=== PATIENT | female | born 1945 | race Caucasian/White ===

== ENCOUNTER → 2016-09-18 | Outpatient (CLI) | payer BC ==
[~2016-09-18] MED LIST: CHOL100010 PO; FLX5 PO; LEVO112T4 PO; LISI-725 PO; LMC/150 PO; PRED-301 PO; RXC5 PO; TRAM-10 PO; ZNTT/150 PO
[2016-09-18 14:11] LABS: CREATININE 0.81 mg/dl (0.60-1.20)
== END | disposition home or self-care (01) ==
LOC: C.LABBC 09:26
PROVIDERS: ATTEND Internal Medicine
DX: S32.030A Wedge compression fracture of third lumbar vertebra, initial encounter for closed fracture (principal); M85.80 Other specified disorders of bone density and structure, unspecified site; X58.XXXA Exposure to other specified factors, initial encounter

== ENCOUNTER → 2016-09-23 | Day surgery (SDC) | payer BC ==
[~2016-09-23] VITALS: Ht 167.6 cm; Wt 60.0 kg
[~2016-09-23] MED LIST changes: +ZOLEDRONIC ACID INJ 5 MG in EMPTY BAG 0 ML IV SCH
[2016-09-23 09:59] VITALS: BP 147/74; PULSE 84; TEMP 36.7; O2SAT 95; Ht 167.6 cm; Wt 60.0 kg
== END | disposition home or self-care (01) ==
LOC: C.MTU 09:51
PROVIDERS: ATTEND Physician Assistant
DX: M81.0 Age-related osteoporosis without current pathological fracture (principal)

== ENCOUNTER → 2016-11-06 | Outpatient (CLI) | payer BC ==
[~2016-11-06] MED LIST changes: -FLX5 PO; -RXC5 PO; -ZOLEDRONIC ACID INJ 5 MG in EMPTY BAG 0 ML IV SCH
[2016-11-06 10:53] LABS: MEAN CELL VOLUME 99.2 fL (80-100); MEAN CORPUSCULAR HEMOGLOBIN 32.9 pg (25-34); MEAN CORPUSCULAR HGB CONC 33.1 g/dl (32-36); MEAN PLATELET VOLUME 9.7 fL (7.4-10.4); PLATELET COUNT 507 K/uL (130-400); RED BLOOD COUNT 3.53 M/uL (4.2-5.4)
[2016-11-06 11:09] LABS: BLOOD UREA NITROGEN 15 mg/dl (7-18); BUN/CREATININE RATIO 21.3 (10-20); CALCIUM 9.4 mg/dl (8.5-10.1); CARBON DIOXIDE 29 mmol/L (21-32); CHLORIDE 104 mmol/L (98-107); CREATININE 0.72 mg/dl (0.60-1.20); GLUCOSE 130 mg/dl (70-99); POTASSIUM 3.5 mmol/L (3.5-5.1); SODIUM 141 mmol/L (136-145)
[2016-11-06 11:33] LABS: ANISOCYTOSIS PRESENT; BASO % 0.4 %; BASO ABS # 0.04 K/uL (0-0.2); COMPLETE YES; IG% 0.3 %; LYMPH % 20.9 %; LYMPH ABS # 2.22 K/uL (1.2-3.4); MONO % 9.4 %; STOMATOCYTE 1+; TARGET CELLS 1+
== END | disposition home or self-care (01) ==
LOC: C.LABBC 08:59
PROVIDERS: ATTEND Internal Medicine
DX: R70.0 Elevated erythrocyte sedimentation rate (principal)

== ENCOUNTER → 2016-12-25 | Outpatient (CLI) | payer BC ==
[2016-12-25 11:29] LABS: ESTIMATED AVERAGE GLUCOSE 108 mg/dl; HA1C FLAG Normal (Normal)
--- NOTE | 2016-12-30 12:45 | CODING QUERY MEDICAL NECESSITY ---
CQSUPPORTING DIAGNOSIS NEEDED A supporting diagnosis is required for the test/procedure performed on this patient in order for us to be reimbursed by the patient's insurance. Please provide a supporting diagnosis for the following test/procedure listed below next to the test name along with your signature. *If there is no additional diagnosis for this patient that would support the following test/procedure please document that below next to the test/procedure. Test(s)/Procedure(s) that require a supporting diagnosis: DOS 12/25/16 GLYCATED HEMOGLOBIN TEST ORDERED BY GABO SULLIVAN Provider Signature: Date: Thank you Waleska Soriano Health Information Management Once completed, please kindly fax back to [phone] For questions please call [phone]
== END ==
LOC: C.LABBC 08:53
PROVIDERS: ATTEND Physician Assistant
DX: R76.8 Other specified abnormal immunological findings in serum (principal); M35.3 Polymyalgia rheumatica; D64.9 Anemia, unspecified; Z13.1 Encounter for screening for diabetes mellitus

== ENCOUNTER → 2017-02-12 | Outpatient (CLI) | payer BC | END | disposition home or self-care (01) | LOC: C.LABBC 08:27 | PROVIDERS: ATTEND Physician Assistant | DX: E89.0 Postprocedural hypothyroidism (principal) ==

== ENCOUNTER → 2017-05-28 | Outpatient (CLI) | payer BC ==
[2017-05-28 13:35] LABS: BASO % 0.1 %; BASO ABS # 0.02 K/uL (0-0.2); EOS % 0.3 %; HEMATOCRIT 35.7 % (37-47); IG% 0.3 %; LYMPH ABS # 1.17 K/uL (1.2-3.4); MEAN CELL VOLUME 103.5 fL (80-100); MEAN CORPUSCULAR HEMOGLOBIN 33.9 pg (25-34); MEAN CORPUSCULAR HGB CONC 32.8 g/dl (32-36); MEAN PLATELET VOLUME 10.4 fL (7.4-10.4); MONO % 6.9 %; NEUT % 84.4 %; PLATELET COUNT 458 K/uL (130-400); RED BLOOD COUNT 3.45 M/uL (4.2-5.4); WHITE BLOOD COUNT 14.62 K/uL (4.8-10.8)
[2017-05-28 13:53] LABS: BLOOD UREA NITROGEN 18 mg/dl (7-18); BUN/CREATININE RATIO 25.3 (10-20); CALCIUM 9.1 mg/dl (8.5-10.1); CARBON DIOXIDE 27 mmol/L (21-32); CHLORIDE 106 mmol/L (98-107); GLUCOSE 123 mg/dl (70-99); POTASSIUM 3.8 mmol/L (3.5-5.1); SODIUM 139 mmol/L (136-145)
[2017-05-28 14:25] LABS: ANISOCYTOSIS PRESENT; COMPLETE YES
== END | disposition home or self-care (01) ==
LOC: C.LABBC 11:00
PROVIDERS: ATTEND Physician Assistant
DX: M35.3 Polymyalgia rheumatica (principal)

== ENCOUNTER → 2017-06-01 | Outpatient (CLI) | payer BC | END | disposition home or self-care (01) | LOC: C.LAB1850 15:11 | PROVIDERS: ATTEND Physician Assistant | DX: R76.8 Other specified abnormal immunological findings in serum (principal); M25.50 Pain in unspecified joint ==

== ENCOUNTER → 2017-06-16 | Outpatient (CLI) | payer BC | END | disposition home or self-care (01) | LOC: C.RDSM 12:07 | PROVIDERS: ATTEND Family Medicine | DX: M25.511 Pain in right shoulder (principal) ==

== ENCOUNTER → 2017-07-01 | Outpatient (CLI) | payer BC ==
--- NOTE | 2017-07-02 07:47 | MAMMOGRAPHY REPORT ---
BILATERAL DIGITAL SCREENING MAMMOGRAM TOMOSYNTHESIS WITH CAD: 07/01/2017 CLINICAL HISTORY: Routine screening. Patient has no complaints. TECHNIQUE: Breast tomosynthesis in addition to standard 2D mammography was performed. Current study was also evaluated with a Computer Aided Detection (CAD) system. COMPARISON: Comparison is made to exams dated: 06/30/2016 mammogram, 06/27/2015 mammogram, 4 mammogram, 06/23/2013 mammogram, 06/22/2012 mammogram, and 06/20/2011 mammogram - [facility]. BREAST COMPOSITION: There are scattered areas of fibroglandular density in both breasts. FINDINGS: There are benign rim calcifications in both breasts. No suspicious mass, architectural di stortion or cluster of microcalcifications is seen. IMPRESSION: ACR BI-RADS CATEGORY 2: BENIGN There is no mammographic evidence of malignancy. A 1 year screening mammogram is recommended. The pa tient will receive written notification of the results. Approximately 10% of breast cancers are not detected with mammography. A negative mammographic report should not delay biopsy if a clinically suggestive mass is present. Angela Titus M.D. ay/:07/01/2017 09:44:58 [employer]work Salv[employer] Inspector: Kim Wooten, [facility] letter sent: Normal 1/2 BI-RADS Code: ACR BI-RADS Category 2: Benign
== END | disposition home or self-care (01) ==
LOC: C.MAMM 08:57
PROVIDERS: ATTEND Obstetrics & Gynecology
DX: Z12.31 Encounter for screening mammogram for malignant neoplasm of breast (principal)

== ENCOUNTER → 2017-07-31 | Outpatient (CLI) | payer BC ==
[2017-07-31 13:38] LABS: BASO % 0.5 %; BASO ABS # 0.05 K/uL (0-0.2); HEMATOCRIT 33.7 % (37-47); IG% 0.3 %; LYMPH % 19.8 %; LYMPH ABS # 2.05 K/uL (1.2-3.4); MEAN CELL VOLUME 103.4 fL (80-100); MEAN CORPUSCULAR HEMOGLOBIN 33.1 pg (25-34); MEAN PLATELET VOLUME 9.8 fL (7.4-10.4); MONO % 8.5 %; NEUT % 68.9 %; PLATELET COUNT 429 K/uL (130-400); RED BLOOD COUNT 3.26 M/uL (4.2-5.4); WHITE BLOOD COUNT 10.36 K/uL (4.8-10.8)
[2017-07-31 13:54] LABS: BLOOD UREA NITROGEN 20 mg/dl (7-18); BUN/CREATININE RATIO 25.6 (10-20); CALCIUM 9.1 mg/dl (8.5-10.1); CARBON DIOXIDE 27 mmol/L (21-32); CHLORIDE 103 mmol/L (98-107); CREATININE 0.77 mg/dl (0.60-1.20); GLUCOSE 117 mg/dl (70-99); POTASSIUM 3.7 mmol/L (3.5-5.1); SODIUM 140 mmol/L (136-145)
[2017-07-31 14:10] LABS: ANISOCYTOSIS PRESENT; COMPLETE YES; HYPOCHROMIA PRESENT
== END | disposition home or self-care (01) ==
LOC: C.LABBC 09:25
PROVIDERS: ATTEND Physician Assistant
DX: E89.0 Postprocedural hypothyroidism (principal); D64.9 Anemia, unspecified; I10 Essential (primary) hypertension

== ENCOUNTER → 2017-08-17 | Outpatient (CLI) | payer BC ==
--- NOTE | 2017-08-17 10:12 | DIAGNOSTIC IMAGING REPORT ---
R WRIST MIN 3 VIEWS ROUTINE CLINICAL HISTORY: Steroid induced osteoporosis. COMPARISON: None FINDINGS: Alignment of the right wrist is anatomic. There is no fracture or suspicious osseous lesion. There is mild to moderate medial right wrist soft tissue swelling overlying the distal right ulna. There is mild osteoarthritis of multiple articulations within the right wrist, including the triscaphe joint and right first carpometacarpal joint and the radiocarpal articulation. No erosions are identified. IMPRESSION: 1. 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 No erosions identified. 2. Mild to moderate medial right wrist soft tissue swelling. Electronically signed by: Harshil Rascon M.D. 08/17/2017 10:11 AM Dictated Date/Time: 08/17/2017 10:10 AM
--- NOTE | 2017-08-17 10:12 | DIAGNOSTIC IMAGING REPORT ---
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 DISCUSSION: Mild generalized osteopenia. There are no significant marginal erosions. Mild degenerative changes of the articular services primarily at the first carpometacarpal joint. No acute bony and amount. No abnormal soft tissue calcifications. There is no evidence for soft tissue swelling. IMPRESSION: 1. Mild generalized osteopenia. 2. Mild generalized degenerative change most prominent at the first carpometacarpal joint. 3. No acute process. The above report was generated using voice recognition software. It may contain grammatical, syntax or spelling errors. Electronically signed by: Pete Nevarez M.D. 08/17/2017 10:11 AM Dictated Date/Time: 08/17/2017 10:09 AM
--- NOTE | 2017-08-17 10:15 | DIAGNOSTIC IMAGING REPORT ---
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 Mild radiocarpal, multidigit metacarpophalangeal and interphalangeal degenerative changes are noted with moderate triscaphe and first digit carpometacarpal osteoarthritis. There is no acute fracture, dislocation or significant degenerative changes. Soft tissues are unremarkable. IMPRESSION: 1. No acute fracture or dislocation. 2. Mildly demineralized appearance of the bones, notably within the periarticular distributions about the hand. 3. Multifocal degenerative changes of the hand, primarily mild. The above report was generated using voice recognition software. It may contain grammatical, syntax or spelling errors. Electronically signed by: Brian Crandall M.D. 08/17/2017 10:13 AM Dictated Date/Time: 08/17/2017 10:09 AM
[2017-08-17 11:09] LABS: RHEUMATOID FACTOR < 10.0 U/mL (0-15)
== END | disposition home or self-care (01) ==
LOC: C.RAD1850 09:36
PROVIDERS: ATTEND Internal Medicine Rheumatology
DX: M81.8 Other osteoporosis without current pathological fracture (principal)

== ENCOUNTER → 2017-08-21 | Outpatient (CLI) | payer BC | END | disposition home or self-care (01) | LOC: C.LABBC 11:48 | PROVIDERS: ATTEND Internal Medicine Rheumatology | DX: M35.3 Polymyalgia rheumatica (principal) ==

== ENCOUNTER 2017-09-06 08:44 | Emergency (ER) | payer BC ==
[~2017-09-06] VITALS: Ht 167.6 cm; Wt 60.4 kg
[2017-09-06 08:48] VITALS: Ht 167.6 cm; Wt 60.4 kg
[2017-09-06] MEDS ORDERED: CIPR-255 PO (09:13)
[2017-09-06 09:23] VITALS: BP 155/81; PULSE 86; TEMP 36.5; O2SAT 98
--- NOTE | 2017-09-06 10:37 | EMERGENCY ROOM VISIT NOTE ---
ED Visit Note First contact with patient: 08:54 Patient was seen by our PA/DIRECTOR OF CONTRACTS. I was involved in the patient's care and did evaluate the patient myself. I was involved in the care throughout the ER stay. The patient has urinary symptoms. She is not toxic or febrile. She is not vomiting. She would like to try antibiotics for now. She will return if not improving or worsening. She has had numerous UTI's in the past.
--- NOTE | 2017-09-08 12:28 | Pharmacy Progress Note ---
ED Pharmacist Progress Note Date of Service: Sep 08, 2017. Called patient regarding URINE culture. Prescription for Macrobid 100mg PO BID x 7 days called to [facility] ([phone]) at the patient's request. Case discussed with Dr Elmo Cosme, who is the prescribing provider. Patient was instructed to stop taking the Ciprofloxacin as the e coli growing in the urine cx was resistant.
--- NOTE | 2017-09-23 16:54 | EMERGENCY ROOM VISIT NOTE ---
History First contact with patient: 08:54 Chief Complaint: URINARY SYMPTOMS Stated Complaint: UTI SYMPTOMS Nursing Triage Summary: thursday night urine infections started . started urostat. sx have become worse. denies any vomiting feels nauseated. lower middle abd pain. has hx of uti. gets spasms. requesting antibiotics History of Present Illness The patient is a 72 year old female who presents to the Emergency Room with complaints of urinary discomfort and increased frequency. The patient reports that her symptoms started 3 days ago. The patient has had a prior history of urinary tract infections. The patient complains of suprapubic pressure. She denies any pain radiating into the back or flanks. She does report mildly nauseated, and denies any fever or chills. She rates her discomfort a 3 out of 10 on my exam. Review of Systems 10 system review was performed and was negative except for pertinent positives and negatives as indicated in history of present illness Past Medical/Surgical History Medical Problems: (1) Compression fracture of L3 lumbar vertebra (2) Compression fracture of second lumbar vertebra (3) Sacral fracture, closed Family History Patient reports no known family medical history. Social History Smoking Status: Never Smoker Alcohol Use: occasionally Drug Use: none Marital Status: Housing Status: lives with family Current/Historical Medications Scheduled Cholecalciferol (Vitamin D), 2,000 INTER.UNIT PO DAILY Ciprofloxacin Hcl (Cipro), 500 MG PO BID Lamotrigine (Lamictal), 150 MG PO BID Levothyroxine Sodium (Levothyroxine Sodium), 112 MCG PO DAILY Lisinopril (Zestril), 10 MG PO DAILY Prednisone (Prednisone), 15 MG PO DAILY Ranitidine (Zantac), 150 MG PO BID Physical Exam Vital Signs Date Time Temp Pulse Resp B/P (MAP) Pulse Ox O2 Delivery O2 Flow Rate FiO2 09/06/17 09:23 36.5 86 18 155/81 98 09/06/17 09:23 86 18 155/81 98 Room Air 09/06/17 08:48 36.5 86 18 174/83 98 Room Air Physical Exam CONSTITUTIONAL: Healthy and well nourished. Alert and oriented X 3 with positive affect. HEENT: Normocephalic, atraumatic. Pupils equal, round and reactive. NECK: Full active range of motion without discomfort. GASTROINTESTINAL: Patient has mild suprapubic tenderness to palpation. Negative McBurney's point tenderness. No focal left lower quadrant tenderness to palpation. No abdominal rigidity, guarding or rebound. Negative CVA tenderness. MUSCULOSKELETAL: Full range of motion of all joints without discomfort. INTEGUMENTARY: No rash or other significant dermatologic conditions noted. NEUROLOGIC: No focal neurologic deficits noted. Medical Decision & Procedures Laboratory Results Test 09/06/17 08:45 Lab Scanned Report Laboratory Report/Additional Date/Time Source Procedure Growth Status 09/06/17 09:00 Urine , Clean Catch Urine Culture - Final Escherichia Coli Complete Urine dip shows hematuria, nitrites and leukocyte esterase. Urine cultures were ordered and are pending. ED Course Patient history and physical exam were performed. Nurse's notes were reviewed. Vital signs were reviewed and were normal. The patient is afebrile. Urine dip is how is suggestive of infection. Urine cultures were ordered and are pending. I did review urine cultures from June 2013, showing Escherichia coli that was pansensitive. The patient will therefore be treated with ciprofloxacin antibiotics. She was encouraged to follow-up with her PCP if symptoms are not improving. Return to the emergency department for any significantly worsening pain, vomiting or fever. The patient was also seen and examined by Dr. Youngblood, ED attending physician, who agrees with workup and plan of care. Medical Decision Patient has urine dip findings consistent with UTI. Clinical exam is not suggestive of appendicitis, diverticulitis, pyelonephritis, peritonitis or other acute intra-abdominal etiologies. The patient is afebrile and does not appear in any acute distress. [facility] Drug Monitoring Program Search Results: patient reviewed within database Medication Reconcilliation Current Medication List: was personally reviewed by la Blood Pressure Screening Patient's blood pressure: Normal blood pressure Impression Primary Impression: Urinary tract infection Departure Information Dispostion Home / Self-Care Condition GOOD Prescriptions Ciprofloxacin Hcl (CIPRO) 500 Mg Tab 500 MG PO BID for 7 Days, #14 TAB Prov: Tam Brooks PA 09/06/17 Forms HOME CARE DOCUMENTATION FORM, IMPORTANT VISIT INFORMATION Patient Instructions My [facility] [place] [employer] Additional Instructions Complete all Cipro antibiotics as prescribed. You may continue with Uristat as needed for urinary discomfort. Return to the emergency department for any progressively worsening pain, fever or vomiting. Problem Qualifiers Primary Impression: Urinary tract infection Urinary tract infection type: acute cystitis Hematuria presence: with hematuria Qualified Codes: N30.01 - Acute cystitis with hematuria
== END 2017-09-06 09:24 | disposition home or self-care (01) ==
LOC: C.EDB 08:45
DX: N39.0 Urinary tract infection, site not specified (principal); Z79.899 Other long term (current) drug therapy

== ENCOUNTER → 2017-09-22 | Outpatient (CLI) | payer BC ==
[~2017-09-22] MED LIST changes: +CIPR-255 PO; -TRAM-10 PO
== END | disposition home or self-care (01) ==
LOC: C.LABBC 09:39
PROVIDERS: ATTEND Internal Medicine Rheumatology
DX: M81.8 Other osteoporosis without current pathological fracture (principal); Z79.52 Long term (current) use of systemic steroids; Z51.81 Encounter for therapeutic drug level monitoring; R39.9 Unspecified symptoms and signs involving the genitourinary system

== ENCOUNTER → 2017-09-29 | Outpatient (CLI) | payer BC | END | disposition home or self-care (01) | LOC: C.MAMM 07:46 | PROVIDERS: ATTEND Internal Medicine Rheumatology | DX: M85.851 Other specified disorders of bone density and structure, right thigh (principal); M85.852 Other specified disorders of bone density and structure, left thigh ==

== ENCOUNTER → 2017-11-23 | Outpatient (CLI) | payer BC ==
[~2017-11-23] MED LIST changes: +RANI150T85 PO; -ZNTT/150 PO
== END | disposition home or self-care (01) ==
LOC: C.LABBC 10:27
PROVIDERS: ATTEND Internal Medicine Rheumatology
DX: M35.3 Polymyalgia rheumatica (principal)

== ENCOUNTER → 2017-12-31 | Outpatient (CLI) | payer BC ==
[2017-12-31 14:10] LABS: BLOOD UREA NITROGEN 18 mg/dl (7-18); CREATININE 0.71 mg/dl (0.60-1.20); GLUCOSE 132 mg/dl (70-99)
[2017-12-31 14:11] LABS: CALCIUM 8.8 mg/dl (8.5-10.1); CARBON DIOXIDE 27 mmol/L (21-32); POTASSIUM 3.5 mmol/L (3.5-5.1); SODIUM 140 mmol/L (136-145)
[2017-12-31 14:21] LABS: CHOLESTEROL 185 mg/dl (0-200); LDL CHOLESTEROL CALCULATED 110 mg/dl
[2017-12-31 14:29] LABS: BASO % 0.3 %; BASO ABS # 0.04 K/uL (0-0.2); EOS % 2.1 %; EOS ABS # 0.26 K/uL (0-0.5); HEMATOCRIT 37.5 % (37-47); HEMOGLOBIN 12.5 g/dL (12.0-16.0); IG# 0.05 K/uL (0.00-0.02); LYMPH ABS # 2.44 K/uL (1.2-3.4); MEAN CORPUSCULAR HEMOGLOBIN 36.3 pg (25-34); MEAN CORPUSCULAR HGB CONC 33.3 g/dl (32-36); MEAN PLATELET VOLUME 10.1 fL (7.4-10.4); MONO % 7.3 %; MONO ABS # 0.89 K/uL (0.11-0.59); NEUT % 69.9 %; NEUT ABS # 8.54 K/uL (1.4-6.5); NUCLEATED RED BLOOD CELL ABS 0.03 K/uL (0-0); PLATELET COUNT 454 K/uL (130-400); RED CELL DISTRIBUTION WIDTH SD 83.2 fL (36.4-46.3); WHITE BLOOD COUNT 12.22 K/uL (4.8-10.8)
== END | disposition home or self-care (01) ==
LOC: C.LABBC 09:42
PROVIDERS: ATTEND Physician Assistant
DX: M35.3 Polymyalgia rheumatica (principal); Z79.52 Long term (current) use of systemic steroids; I10 Essential (primary) hypertension; E89.0 Postprocedural hypothyroidism

== ENCOUNTER → 2018-04-15 | Outpatient (CLI) | payer BC | END | disposition home or self-care (01) | LOC: C.LABBC 08:14 | PROVIDERS: ATTEND Internal Medicine Rheumatology | DX: K21.9 Gastro-esophageal reflux disease without esophagitis (principal); M35.3 Polymyalgia rheumatica; R70.0 Elevated erythrocyte sedimentation rate ==

== ENCOUNTER 2025-03-03 20:12 | Inpatient (IN) ==
[2025-03-03] MEDS: SODIUM CHLORIDE 0.9% 1,000 ML IV SCH (20:27)
--- NOTE | 2025-03-03 20:33 | Emergency Department Note ---
Impression & Plan Weakness, Anemia, Acute hyperglycemia, Leukocytosis, Failure of outpatient treatment ED Provider Note NAME: SMILEY PERRY AGE: 79 SEX: F : 1945 ARRIVES VIA: Ambulance INFORMANT: [Patient][ems] ED PROVIDER(S): [Omar Youngblood MD] CHIEF COMPLAINT: Bilateral leg weakness HISTORY OF PRESENT ILLNESS: The patient is a 79-year-old female who presents to the ER with leg weakness. The patient has been having symptoms for at least 2 weeks, she has been here twice already for the same complaint. She is now on a burst of steroids. The patient states that she has been crumpling to the ground and sitting on the ground/floor because of the leg weakness, no fall. No injury. No fever. No cough or congestion. No abdominal pain, no vomiting. She does notice some urinary frequency but there is no burning. Both legs are affected, it is not a one-sided weakness. Of note, the patient did have an MRI of her lumbar spine performed 11 days ago with the first ED visit, there was nothing to suggest acute surgical pathology. As per EMS, blood sugar was over 400 prior to arrival. The patient is diabetic but does not monitor her sugars. No recent vaccinations administered. PMHx/PSHx/Social Hx: See Below PHYSICAL EXAM: GENERAL: Patient is in no acute distress. HEENT: No acute trauma, normocephalic atraumatic, mucous membranes moist, no nasal congestion. NECK: No stridor, no adenopathy, no meningismus, trachea is midline. LUNGS: Clear to auscultation bilaterally, no wheeze, no rhonchi, breath sounds equal. HEART: 2/6 systolic murmur, tachycardic, normal rhythm ABDOMEN: Soft, nontender, no peritonitis. EXTREMITIES: No cyanosis, full range of motion of all the joints without pain or difficulty. NEUROLOGIC: Oriented x 3, no acute motor deficits. No speech slur or facial droop. She does have decent strength in the lower extremities bilaterally. Plantarflexion and dorsiflexion of both feet seems intact. I cannot elicit reflexes in either the right or left patella/Achilles. SKIN: No jaundice, no diaphoresis. DIFFERENTIAL DIAGNOSIS: Dehydration, electrolyte imbalance, medication reaction, neuropathy, Lucia Corryton syndrome, among others. EMERGENCY DEPARTMENT PROCEDURES: MEDICAL DECISION MAKING: There is a mild leukocytosis. This could be consistent with infection or potentially, her recent steroid use. There is anemia present with a hemoglobin of 10.5, the hemoglobin is at baseline based on previous testing. Platelet count slightly elevated at 408. No renal failure. Glucose was quite high at 470. Lactic acid level was not elevated making sepsis less likely. Bilirubin was very mildly elevated. Total CK was not elevated making rhabdomyolysis unlikely. The patient appeared to be in a euthyroid state. ECG showed a sinus tachycardia, no acute ischemia. Cardiac enzyme testing x 1 was not consistent with acute cardiac injury. Urinalysis showed findings of dehydration, glucose was seen. No infection. Chest x-ray did not show pneumonia or CHF. Blood cultures are pending. On exam, the patient had decent strength in the lower extremities, I could not elicit any reflexes. Patient received IV saline, 2 L. She was given IV Tylenol and IV cefepime. The cefepime was for empiric antibiotic coverage. The patient was borderline febrile. She has a leukocytosis, her weakness has increased, she is now quite hyperglycemic, she has failed outpatient management. I do think a hospital stay, hydration, further workup is warranted. At this point, the cause for the progressive weakness is unclear. Further workup is clearly indicated. I do not think a repeat MRI is necessary as she just underwent this test for the same complaints 11 days ago. Patient may benefit from a neurology consult. She may need PT/OT once her electrolytes have been corrected. I did speak with the patient and case management, the on-call hospitalist was consulted. Prior/Outside records/notes reviewed: Today's EMS notes describing her presentation and transport to this hospital. ECG per my interpretation: Indication was weakness. The ECG shows a sinus tachycardia with a rate of 107. There is no acute ST elevation, no PVCs. The QTc is 424. Continuous Cardiac Monitoring per my interpretation: An order was placed for continuous cardiac monitoring. The monitor shows a rate of 108 with sinus tachycardia. Imaging/x-ray results per my interpretation: Chest x-ray does not show CHF or pneumonia. Chronic Medical/Social conditions affecting care: Advanced age. 2 previous ED visits for the last 10 days. Care/Management discussed with: Case management, the on-call hospitalist. Level of care consideration(s): After review of the information above and other included data: --I believe the patient requires escalation of care to admission DISPOSITION: Admission Past Med/Surg History Problem List (Updated 03/03/25 @ 22:28 by Omar Youngblood MD) Failure of outpatient treatment (Acute) Leukocytosis (Acute) Acute hyperglycemia (Acute) Anemia (Acute) Weakness (Acute) Spinal stenosis (Acute) Compression deformity of vertebra (Acute) Back pain (Acute) Peripheral neuropathy (Acute) Bilateral leg weakness (Acute) Pulsatile tinnitus Bilateral tinnitus Sensorineural hearing loss (SNHL) of both ears >AD Osteoporosis Compression fracture of spine (~08/05/24) Per the CT dated 08/05/24-compression fractures of L2, L3 and L5. These are new since CT of January 14, 2012. Coronary artery calcification seen on CAT scan Cardiomegaly Type 2 diabetes mellitus Squamous cell carcinoma of skin of chest Decreased hearing Skin lesion of chest wall Pain in both feet Heart rate fast Hyperglycemia Health care maintenance Hypothyroidism (Chronic) VICENTE positive (Chronic) Arthralgia of multiple joints (Chronic) Bakers cyst (Chronic) Carpal tunnel syndrome (Chronic) gets numb occasionally Hypertension (Chronic) Laryngopharyngeal reflux (Chronic) snf (current) use of systemic steroids (Chronic) Lumbosacral radiculopathy (Chronic) Myelodysplastic syndrome (Chronic) f/u dr. bradford, twice per year Peripheral neuropathy (Chronic) Postmenopausal atrophic vaginitis (Chronic) Seizure disorder (Chronic) most recent seizure in 1991-grand mal, "no issues since then" Steroid-induced osteoporosis (Chronic) Vitamin D deficiency (Chronic) Medical History Cerumen debris on tympanic membrane of right ear Bone spur of right foot Asymptomatic age-related postmenopausal state Hx of radioactive iodine thyroid ablation 2011 History of anemia Hypothyroidism Dysphagia occasionally, makes sure to drink fluids w/meals Dysuria takes AZO daily per 's suggestion Back pain with sciatica Compression fracture of L2 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 Esophageal spasm PMR (polymyalgia rheumatica) Undifferentiated connective tissue disease Venous stasis of both lower extremities Urinary tract infection hx-"gets frequently, dr recommended she take Azo daily" Compression fracture of second lumbar vertebra Surgical History History of esophagogastroduodenoscopy (EGD) Hx of colonoscopy H/O tubal ligation History of colposcopy Family History Mother Diabetes Denies family history of Ovarian cancer Prostate cancer Myocardial infarction Breast cancer Colorectal cancer Social History Smoking Status: Former smoker Tobacco Type: Cigarettes Age Started Using Tobacco: 20; Age Quit Using Tobacco: 64; packs per day: 0.10; Cigarettes Per Day: 1 pack in two weeks; Second Hand Exposure: No; Do You Dip or Chew Tobacco: No; Hx Alcohol Use: No (none since 2015) Hx Substance Use: No Preferred Language: Estonian Communication Ability: Effective Visual Impairment: No Limitations Hearing Ability: Use of Hearing Aid Public Safety Officer Required: No Beliefs That Will Affect Care: None marital status: Current Living Situation: Spouse current occupational status: retired Feels Safe at Home: Yes Childhood Exposure to Second-Hand Smoke: No Dental Care, Regularly: Yes Physical Activity Frequency: Daily Seatbelt Use: always Sunscreen Use: Yes Assistive Devices: Glasses and Other Allergies Allergies Allergy/AdvReac Type Severity Reaction Status Date / Time nitrofurantoin Allergy dizzy, gi Verified 02/15/25 09:01 [From Macrobid] upset ampicillin AdvReac Intermediate Diarrhea Verified 02/15/25 09:01 Sulfa (Sulfonamide AdvReac Mild DIZZY Verified 02/15/25 09:01 Antibiotics) Home Meds Home Medications Medication Instructions Recorded Confirmed cholecalciferol (vitamin D3) 50 2,000 units PO QAM 03/13/20 02/20/25 mcg (2,000 unit) tablet phenazopyridine 95 mg tablet (Azo 95 mg PO BID PRN pain relief 08/26/24 02/20/25 Urinary Pain Relief) rosuvastatin 10 mg tablet 5 mg PO DAILY 08/26/24 02/20/25 vitamins A,C,T-ycap-ucpnpd 4,296 1 cap PO BID 08/26/24 02/20/25 mcg-226 mg-90 mg capsule (PreserVision AREDS) Previous Rx's Medication Instructions Recorded lamotrigine 150 mg tablet 150 mg PO BID #180 tabs 06/14/24 romosozumab-aqqg 210 mg/2.34 210 mg (2.34 mL) subcut ONCE #2.34 10/21/24 mL(105 mg/1.17 mL x2)subcutaneous mL syringe (Evenity) lisinopril 10 mg tablet 10 mg PO QAM #90 tabs 12/02/24 levothyroxine 112 mcg tablet 112 mcg PO UD #90 tabs 01/24/25 prednisone 5 mg tablet 5 mg PO QAM #90 tabs 01/24/25 gabapentin 100 mg capsule 100 mg PO TID PRN back pain #30 02/20/25 caps Results & Data (ED) Vital Signs Vital Signs - 24 hr 03/03/25 20:17 03/03/25 20:22 03/03/25 20:44 Temperature 37.6 C H Temperature Source Oral Pulse Rate 116 H 108 H 106 H Pulse Rate [Finger] Respiratory Rate 26 H 20 Respiratory Effort / Characteristics Non-Labored Spontaneous Respiratory Depth Normal Blood Pressure 161/76 H Blood Pressure [Right Arm] Blood Pressure Mean 104 Blood Pressure Mean [Right Arm] Pulse Oximetry 96 95 Oxygen Delivery Method Room Air Room Air Sepsis Recent Fever Within 48 Hours No Sepsis New/Unexplained Change in Mental Status No Sepsis Action Taken by Nursing Physician Notified 03/03/25 20:44 03/03/25 22:07 Temperature Temperature Source Pulse Rate Pulse Rate [Finger] 107 H 100 H Respiratory Rate 20 20 Respiratory Effort / Characteristics Non-Labored Spontaneous Non-Labored Spontaneous Respiratory Depth Normal Normal Blood Pressure Blood Pressure [Right Arm] 161/76 H 161/76 H Blood Pressure Mean Blood Pressure Mean [Right Arm] 104 104 Pulse Oximetry 95 Oxygen Delivery Method Room Air Room Air Sepsis Recent Fever Within 48 Hours Sepsis New/Unexplained Change in Mental Status Sepsis Action Taken by Residential Medications Current Medication List: was personally reviewed by me Laboratory Data Attestation: I reviewed the patient's lab results. 03/03/25 20:20 03/03/25 20:20 Lab Results 03/03/25 03/03/25 03/03/25 Range/Units 20:20 20:25 Unknown WBC 14.14 H (4.8-10.8) K/ul RBC 3.13 L (4.20-5.40) M/uL Hgb 10.5 L (12.0-16.0) g/dl Hct 31.5 L (37.0-47.0) % MCV 100.6 H (80.0-100.0) fL MCH 33.5 (25.0-34.0) pg MCHC 33.3 (32.0-36.0) g/dL RDW Std Deviation 77.8 H (36.4-46.3) fL RDW Coeff of Hieu 21.4 H (11.5-14.5) % Plt Count 408 H (130-400) K/uL MPV 10.1 (9.4-12.4) fL Immature Gran % (Auto) 1.1 % Neut % (Auto) 90.2 % Lymph % (Auto) 3.0 % [place] % (Auto) 5.1 % Eos % (Auto) 0.5 % Baso % (Auto) 0.1 % Neut # (Auto) 12.74 H (1.40-6.50) K/uL Lymph # (Auto) 0.43 L (1.20-3.40) K/uL [place] # (Auto) 0.72 H (0.11-0.59) K/uL Eos # (Auto) 0.07 (0.00-0.50) K/uL Baso # (Auto) 0.02 (0.00-0.20) K/uL Immature Gran # (Auto) 0.16 (0.01-0.20) K/uL Polychromasia 1+ Anisocytosis Present Sodium 132 L (136-145) mmol/L Potassium 4.1 (3.5-5.1) mmol/L Chloride 99 (98-107) mmol/L Carbon Dioxide 26 (21-32) mmol/L Anion Gap 7 (3-11) BUN 25 H (6-23) mg/dl Creatinine 0.78 (0.6-1.2) mg/dl Est Cr Clr Drug Dosing 54.3 ml/min eGFR 78.18 BUN/Creatinine Ratio 32.1 H (10-20) Glucose 471 H* (70-99(Fasting)) mg/dl POC Glucose 450 H* (70-99) mg/dl Lactate 1.0 (0.4-2.0) mmol/L Calcium 9.0 (8.6-10.3) mg/dl Magnesium 2.0 (1.7-2.4) mg/dl Total Bilirubin 1.4 H (0.2-1.0) mg/dl AST 12 L (13-39) U/L ALT 11 (7-52) U/L Alkaline Phosphatase 57 (34-104) U/L Total Creatine Kinase 35 (26-192) U/L Troponin I High Sens 11.5 (0-14) pg/ml Total Protein 6.6 (6.0-8.3) gm/dl Albumin 3.4 (3.4-5.0) gm/dl Globulin 3.2 (2.5-4.0) gm/dl Albumin/Globulin Ratio 1.1 (0.9-2) TSH 1.946 (0.300-4.500) uIu/ml Urine Color Yellow Urine Appearance Clear (Clear) Urine pH 7.0 (4.5-7.5) Ur Specific [place] 1.034 H (1.000-1.030) Urine Protein Negative (Negative) Urine Glucose (UA) 3+ H (Negative) Urine Ketones 1+ H (Negative) Urine Blood Negative (Negative) Urine Nitrite Negative (Negative) Urine Bilirubin Negative (Negative) Urine Urobilinogen Negative (Negative) Ur Leukocyte Esterase Negative (Negative) Urine Comment Administered Medications Sodium Chloride (Nss) 1,000 mls @ 999 mls/hr IV .Q1H1M ONE Stop: 03/03/25 22:43 Last Admin: 03/03/25 22:06 Dose: 999 mls/hr Documented By: CELI Discontinued Medications Sodium Chloride (Nss) 1,000 mls @ 999 mls/hr IV .Q1H1M LORENE Stop: 03/03/25 21:30 Last Infusion: 03/03/25 21:43 Dose: Infused Documented By: Admin: 03/03/25 20:27 Dose: 999 mls/hr Documented By: SAADIA Acetaminophen (Ofirmev) 1,000 mg in 100 mls @ 400 mls/hr IV NOW STA Stop: 03/03/25 22:22 Last Admin: 03/03/25 22:22 Dose: 400 mls/hr Documented By: MAKAYLA Cefepime HCl (Maxipime 2000mg) 2,000 mg in 20 mls @ 5 mls/min IV NOW STA; Protocol Stop: 03/03/25 22:11 Last Admin: 03/03/25 22:21 Dose: 5 mls/min Documented By: MAKAYLA Imaging Data Radiologist's Impression: Chest X-Ray 03/03/25 20:23 Exam(s): XR CXR 1 VIEW EXAM: XR Chest, 1 View CLINICAL HISTORY: Reason for exam: weakness. TECHNIQUE: Frontal view of the chest. COMPARISON: October 22, 2023 FINDINGS: Lungs: No consolidation. No overt edema. Pleural space: No pleural effusion. No pneumothorax. Heart: Unremarkable. No cardiomegaly. IMPRESSION: No acute cardiopulmonary abnormality. Electronically signed by: Luis Menon MD 03/03/25 22:07 PM [facility], [place] [phone] Magnetic Resonance Report Patient: SMILYE PERRY Admit Date: 02/20/25 MR#: [id number] Address1: [address] [place] [address] Acct ID:[id number] Address2: Date: 1945 [facility] Zip: [place] [address] Age: 79 Location: ED Sex: F Room/Bed: Att Phy: Diagnosis: LEG WEAKNESS & BACK PAIN Karissa Phy: RV. Villalta MD Service Date: 02/20/25 Fam Phy: Interpreting Phy: Darryl CrandallAdmit Phy: Ordering Phy: Tricia Perkins DO cc: ~ MR lumbar spine wo con CLINICAL HISTORY: 79 years-old Female with low back pain, leg weakness, unable to walk. Acute on chronic low back pain COMPARISON: CT abdomen and pelvis 08/05/2024 TECHNIQUE: Multiplanar, multi sequence MRI of the lumbar spine was performed without intravenous contrast. FINDINGS: Chronic 40% L2 compression deformity appears unchanged along with 4 mm retropulsion. Additional chronic L3 and L5 compression deformities appear unchanged. 4 mm retropulsion at L5 again noted. Chronic sacral insufficiency fractures. 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 No acute fracture or subluxation. Heterogeneous appearance of the bone marrow may be related to the patient's history of myelodysplastic syndrome. The conus terminates at L1-L2. Note is made of a lipoma of the filum terminale. The visualized spinal cord and cauda equina are normal. There is no paraspinal edema, mass, or prevertebral fluid collection. The intra-abdominal structures are grossly unremarkable. T12-L1: Small posterior annular disc bulge. Spondylitic spurring with mild to moderate facet arthrosis. No central canal or neural foraminal stenosis. L1-L2: Spondylotic spurring with chronic L2 retropulsion. Circumferential annular disc bulge which is eccentric to the left neural foramen. Trace facet effusions with ligamentum thickening and severe facet arthrosis. Mild central canal and bilateral lateral recess narrowing. Severe left with mild right foraminal narrowing. L2-L3: 3 mm anterolisthesis appear degenerative. Spondylitic spurring circumferential annular disc bulge. Ligamentum flavum thickening with severe facet arthrosis and trace facet effusions. Mild central canal stenosis with AP dimension of the thecal sac measuring 9 mm. 7 mm synovial cyst arising from the left facet joint noted on image 10 series 6. Mild right with moderate left foraminal narrowing. L3-L4: Spondylotic spurring with small circumferential annular disc bulge. Ligamentum thickening with severe facet arthrosis and bilateral facet effusions. Patent central canal with mild bilateral foraminal narrowing. L4-L5: Spondylotic spurring with circumferential annular disc bulge which is eccentric to the right neural foramen. Ligamentum thickening with moderate facet arthrosis. Patent central canal. Moderate narrowing of the lateral recesses, right greater than left. Mild left with moderate to severe right foraminal narrowing. L5-S1: Spondylotic spurring with small posterior annular disc bulge which is eccentric to the left neural foramen. [id number] facet arthrosis. No central canal or foraminal narrowing. IMPRESSION: 1. No acute fracture. 2. Chronic L2, L3 and L5 compression deformities with mild retropulsion. 3. Multilevel central canal and neural foraminal stenosis as above. ACT 112: Negative or not required by law. Discharge Plan Visit Data Chief Complaint: Leg Weakness, Bilateral Stated Complaint: Leg Weakness ED Provider: Omar Youngblood Discharge Problem: Weakness, Anemia, Acute hyperglycemia, Leukocytosis, Failure of outpatient treatment Patient Disposition: Admitted As Inpatient Condition: Fair Forms Stand Alone Forms: My [facility] Prescriptions Prescriptions: No Action lamotrigine 150 mg tablet 150 mg PO BID Qty: 180 3RF Evenity 210mg/2.34mL ( 105mg/1.17mLx2) syringe 210 mg subcut ONCE Qty: 2.34 10RF Rx Instructions: inject monthly for 12 monthly doses lisinopril 10 mg tablet 10 mg PO QAM Qty: 90 1RF prednisone 5 mg tablet 5 mg PO QAM Qty: 90 3RF levothyroxine 112 mcg tablet 112 mcg PO UD Qty: 90 1RF Rx Instructions: 6 days a week only-thursday through thursday only QAM cholecalciferol (vitamin D3) 50 mcg (2,000 unit) tablet 2,000 units PO QAM rosuvastatin 10 mg tablet 5 mg PO DAILY PreserVision AREDS 4,296 mcg-226 mg-90 mg capsule 1 cap PO BID phenazopyridine [Azo Urinary Pain Relief] 95 mg tablet 95 mg PO BID PRN (Reason: pain relief) gabapentin 100 mg capsule 100 mg PO TID PRN (Reason: back pain) Qty: 30 0RF Referrals Referrals: Jonny Lozano MD [Primary Care Provider] - Discharge Problem: Anemia Qualifiers: Anemia type: unspecified type Qualified Code(s): D64.9 - Anemia, unspecified Leukocytosis Qualifiers: Leukocytosis type: unspecified Qualified Code(s): D72.829 - Elevated white blood cell count, unspecified
[2025-03-03 20:44] LABS: Hematocrit (blood only) 31.5 % (37.0-47.0); Hemoglobin 10.5 g/dl (12.0-16.0); Mean Corpuscular Hemoglobin 33.5 pg (25.0-34.0); Mean Corpuscular Volume 100.6 fL (80.0-100.0); Platelet Count 408 K/uL (130-400); RDW Standard Deviation 77.8 fL (36.4-46.3); Red Blood Count 3.13 M/uL (4.20-5.40); White Blood Count 14.14 K/ul (4.8-10.8)
[2025-03-03 21:10] LABS: Alanine Aminotransferase 11.0 U/L (7-52); Albumin Globulin Ratio 1.1 (0.9-2); Alkaline Phosphatase 57.0 U/L (34-104); Anion Gap 7.0 (3-11); Bilirubin,Total 1.4 mg/dl (0.2-1.0); Blood Urea Nitrogen 25.0 mg/dl (6-23); Calcium 9.0 mg/dl (8.6-10.3); Carbon Dioxide 26.0 mmol/L (21-32); Chloride 99.0 mmol/L (98-107); Creatine Kinase 35.0 U/L (26-192); Creatinine Clr Calc Pharmacy 54.3 ml/min; Globulin 3.2 gm/dl (2.5-4.0); Glucose 471.0 mg/dl (70-99(Fasting)); Magnesium 2.0 mg/dl (1.7-2.4); Potassium 4.1 mmol/L (3.5-5.1); Sodium 132.0 mmol/L (136-145); Total Protein 6.6 gm/dl (6.0-8.3)
[2025-03-03 21:21] LABS: Thyroid Stimulating Hormone 1.946 uIu/ml (0.300-4.500)
[2025-03-03] MEDS: SODIUM CHLORIDE 0.9% 1,000 ML IV ONE (22:06)
--- NOTE | 2025-03-03 22:08 | XRay Report ---
Exam(s): XR CXR 1 VIEW EXAM: XR Chest, 1 View CLINICAL HISTORY: Reason for exam: weakness. TECHNIQUE: Frontal view of the chest. COMPARISON: October 22, 2023 FINDINGS: Lungs: No consolidation. No overt edema. Pleural space: No pleural effusion. No pneumothorax. Heart: Unremarkable. No cardiomegaly. IMPRESSION: No acute cardiopulmonary abnormality. Electronically signed by: Luis Menon MD 03/03/25 22:07 PM
[2025-03-03 22:15] LABS: Anisocytosis Present; Immature Granulocytes # (auto) 0.16 K/uL (0.01-0.20); Immature Granulocytes % (auto) 1.1 %; Polychromasia 1+
[2025-03-03 22:18] LABS: Appearance Urine Clear (Clear); Glucose Urine UA 3+ (Negative)
[2025-03-03] MEDS: CEFEPIME 2000MG 2,000 MG/20 ML SYR IV STA (22:21)
[2025-03-03] MEDS: ACETAMINOPHEN 1,000 MG/100 ML VIAL IV STA (22:22)
--- NOTE | 2025-03-03 22:52 | History & Physical Report ---
Date of Service March 03, 2025 Assessment & Plan (1) Bilateral leg weakness: (2) Lyme disease: (3) Hyponatremia: (4) Hyperglycemia due to type 2 diabetes mellitus: Plan 79-year-old female PMHx HTN, long-term steroid use secondary to PMR/OA, hypothyroidism, cardiomegaly, T2DM, dysplastic syndrome, prior compression fractures, history of seizure disorder, and tachycardia presenting for ongoing BLE weakness. ED evaluation reveals leukocytosis 14. 24, H&H 10.5/31.5, platelets 408; CMP sodium 132, BUN 25, ratio 42.1, glucose 471, repeat 450, lactate 1; bilirubin 1.4, AST 12; CK 35; troponin 11.5; TSH 1.946; UA negative for infection; CXR no acute findings.; Provided with 2L NSS, cefepime 2 g IV, and acetaminophen 1 g IV in ED. #BLE weakness/Lyme Approximately 2 weeks of BLE weakness, with associated back pain. Started after she was gardening she felt that she may have overdid it but does not remember injuring her back in any way. From that time, she starts to "not feel well." Her reflexes are significantly decreased in BLE but she states that this is at her baseline in conjunction with her neuropathy. No recent vaccines. - CBC leukocytosis 14.14, H&H 10.5/31.5, platelets 48; CMP sodium 132, BUN 25, ratio 32.1, glucose 471 initially, bilirubin 1.5, AST 12 - CBC, BMP am - MRI 02/20/2025 no acute findings, chronic L2, L3, L5 compression fractures, and multilevel central canal neuroforaminal stenosis - Tick panel pending, so far positive for Lyme screen - EKG sinus tachycardia at 107 bpm - Echo pending - Fall precautions - Acetaminophen prn pain - Ceftriaxone 2 g IV - PT/OT consulted - appreciate assistance - Neurology consulted - appreciate input and recs - Defer chemical VTE prophylaxis until neuro eval in the case that patient will need CSF analysis #Hyponatremia In setting of hyperglycemia. - Na 132, glucose 471; corrected 141 - Serum osmol, Urine Na, Urine Osmol pending - Glucose management #Hyperglycemia/T2DM Follows with PCP regarding. On medications, manages with diet. Has not been eating as well as she should per her report and has not checked her sugars in > 2 weeks. - Most recent A1C 02/2025 @ 8.3%; glucose on arrival 471 - SSI with target BSG range 110-140mg/dL, CF 50, carb ratio 20 - Lantus 10 U am - BSG ACHS - Pharm glycemic management consult placed, appreciate assistance - adjust regimen as needed #PMR/OA/Chronic steroids- Prednisone 5mg daily - continue #Seizure disorder- Last seizure > 30 years ago; Lamotrigine - continue #Peripheral neuropathy- Gabapentin did not help, utilizing OTC gels #HTN- Lisinopril - continue #MDS- Follows with Dr. Valadez, most recent visit 08/17/2024 - Trend CBC #Hypothyroidism- TSH 1.946; Levothyroxine daily except for on Sundays - continue #Tachycardia/CAD- Coronary artery calcification identified on chest imaging Jul 2024 so on rosuvastatin now; Echo Aug 2024 showed LV - Continue rosuvastatin Pt is requiring O2 via NC with sleeping; no history of sleep disorder or O2 use at baseline. Dispo: Admit, med/tele VTE Prophylaxis: SCDs This document was dictated utilizing [employer]. Please excuse any grammatical errors that may be secondary to use of this software. Admission and Anticipated Discharge Date Admission Date: 03/03/2025 History of Present Illness Chief Complaint: Bilateral leg weakness Primary Care Provider: Jonny Lozano MD 79-year-old female PMHx HTN, long-term steroid use secondary to PMR/OA, hypothyroidism, cardiomegaly, T2DM, dysplastic syndrome, prior compression fractures, history of seizure disorder, and tachycardia presenting for ongoing BLE weakness and ambulatory dysfunction. Patient was evaluated in ER 2 times prior to this current evaluation for the same complaint in the past month of February. She continues to have bilateral leg weakness, stating that it has just continued to get worse. States approximately 2 weeks ago she was in the garden identify hours for a few hours. She states she normally does check her skin for tick bites and did not recall having 1. She has had a few ticks crawling on her before but she did not think that any of them attached to the her. Since 2 weeks ago, she has had increased BLE weakness and generalized feeling of "just not good." Thursday W[employer]IER she called Dr. Thony Winter who encouraged her to come to the ED which she did not end up being discharged home. That Thursday she reports she is "not feeling good." The Thursday following that her had to help her walk up and down the steps and reports that he believes she had an episode of passing out that lasted only a few seconds. She states that today, she woke up and was feeling normal but in the afternoon she started to have worsening of her neuropathy, stating that her legs were aching. She was unable to walk up the steps without support, her had to help her. She states that her legs folded below her. She did not hit her head or other body parts because her was there to help catch her. She has not felt feverish, or taking her temperature. States that she has never had a tick bite before. Her back pain was present earlier in the day but not at present while she is resting in bed. She does have urinary incontinence at baseline which has not worsened since the symptoms started, no bowel incontinence. She states that she gets chronic UTIs sometimes her abdomen will feel irritated from this but she is not experiencing that at the present. She did have some nausea earlier in the day but no vomiting. Denies chest pain, SOB, palpitations, diarrhea/constipation, fever/chills, URI symptoms, LUTS, or other pain. She does sometimes take an Aleve to help with her pain. States that she followed with neurologist Dr. Andrews a few years back for her neuropathy and because she had weak reflexes. Patient does have a history of a seizure disorder, stating her last seizure was more than 30 years ago. She did trial gabapentin earlier in the week, but states that she did not feel this was helping her and she did not feel right on the medication so she discontinued it. ED evaluation reveals leukocytosis 14. 24, H&H 10.5/31.5, platelets 408; CMP sodium 132, BUN 25, ratio 42.1, glucose 471, repeat 450, lactate 1; bilirubin 1.4, AST 12; CK 35; troponin 11.5; TSH 1.946; UA negative for infection; CXR no acute findings.; Provided with 2L NSS, cefepime 2 g IV, and acetaminophen 1 g IV in ED. Please see Dr. Macias's attestation for adjustments/additions to treatment plan. Allergies Allergy/AdvReac Type Severity Reaction Status Date / Time nitrofurantoin Allergy dizzy, gi Verified 02/15/25 09:01 [From Macrobid] upset ampicillin AdvReac Intermediate Diarrhea Verified 02/15/25 09:01 Sulfa (Sulfonamide AdvReac Mild DIZZY Verified 02/15/25 09:01 Antibiotics) Home Medications Medication Instructions Recorded Confirmed Type cholecalciferol (vitamin D3) 50 2,000 units PO QAM 03/13/20 03/03/25 History mcg (2,000 unit) tablet lamotrigine 150 mg tablet 150 mg PO BID #180 tabs 06/14/24 03/03/25 Rx phenazopyridine 95 mg tablet (Azo 95 mg PO BID PRN pain relief 08/26/24 03/03/25 History Urinary Pain Relief) rosuvastatin 10 mg tablet 5 mg PO DAILY 08/26/24 03/03/25 History vitamins A,C,V-hcib-bwgtjn 4,296 1 cap PO BID 08/26/24 03/03/25 History mcg-226 mg-90 mg capsule (PreserVision AREDS) romosozumab-aqqg 210 mg/2.34 210 mg (2.34 mL) subcut ONCE #2.34 10/21/24 03/03/25 Rx mL(105 mg/1.17 mL x2)subcutaneous mL syringe (Evenity) lisinopril 10 mg tablet 10 mg PO QAM #90 tabs 12/02/24 03/03/25 Rx levothyroxine 112 mcg tablet 112 mcg PO UD #90 tabs 01/24/25 03/03/25 Rx prednisone 5 mg tablet 5 mg PO QAM #90 tabs 01/24/25 03/03/25 Rx gabapentin 100 mg capsule 100 mg PO TID PRN back pain #30 02/20/25 Rx caps Past Med/Surg History Problem List (Updated 03/04/25 @ 09:16 by Adi Cabrera MD) Diabetic amyotrophy Hyperglycemia due to type 2 diabetes mellitus Hyponatremia Lyme disease Failure of outpatient treatment (Acute) Leukocytosis (Acute) Acute hyperglycemia (Acute) Anemia (Acute) Weakness (Acute) Spinal stenosis (Acute) Compression deformity of vertebra (Acute) Back pain (Acute) Peripheral neuropathy (Acute) Bilateral leg weakness (Acute) Pulsatile tinnitus Bilateral tinnitus Sensorineural hearing loss (SNHL) of both ears >AD Osteoporosis Compression fracture of spine (~08/05/24) Per the CT dated 08/05/24-compression fractures of L2, L3 and L5. These are new since CT of January 14, 2012. 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 valadez, twice per year Peripheral neuropathy (Chronic) Postmenopausal atrophic vaginitis (Chronic) Seizure disorder (Chronic) most recent seizure in 1991-grand mal, "no issues since then" Steroid-induced osteoporosis (Chronic) Vitamin D deficiency (Chronic) Medical History Cerumen debris on tympanic membrane of right ear Bone spur of right foot Asymptomatic age-related postmenopausal state Hx of radioactive iodine thyroid ablation 2011 History of anemia Hypothyroidism Dysphagia occasionally, makes sure to drink fluids w/meals Dysuria takes AZO daily per 's suggestion Back pain with sciatica Compression fracture of L2 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 Esophageal spasm PMR (polymyalgia rheumatica) Undifferentiated connective tissue disease Venous stasis of both lower extremities Urinary tract infection hx-"gets frequently, dr recommended she take Azo daily" Compression fracture of second lumbar vertebra Surgical History History of esophagogastroduodenoscopy (EGD) Hx of colonoscopy H/O tubal ligation History of colposcopy Family History Mother Diabetes Denies family history of Ovarian cancer Prostate cancer Myocardial infarction Breast cancer Colorectal cancer Social History Smoking Status: Never smoker Tobacco Type: Cigarettes Age Started Using Tobacco: 20; Age Quit Using Tobacco: 64; packs per day: 0.10; Cigarettes Per Day: 1 pack in two weeks; Second Hand Exposure: No; Do You Dip or Chew Tobacco: No; Hx Alcohol Use: No Hx Substance Use: No Preferred Language: Russian Communication Ability: Effective Visual Impairment: No Limitations Hearing Ability: Use of Hearing Aid 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: No Beliefs That Will Affect Care: None marital status: Current Living Situation: Spouse current occupational status: retired Other Information That Helps Us Care for You: No Feels Safe at Home: Yes Safety Concerns: Feels Safe At This Time Childhood Exposure to Second-Hand Smoke: No Dental Care, Regularly: Yes Physical Activity Frequency: Daily Seatbelt Use: always Sunscreen Use: Yes Assistive Devices: Walker Review of Systems Review of Systems: All systems reviewed & are unremarkable except as noted in Subjective Physical Exam Physical Exam: General: No acute distress Skin: Warm and dry Head: Normocephalic, atraumatic Eyes: PERRL, conjunctivae clear, sclera non-icteric; wearing glasses ENT: External ear and ear canal without swelling; nose atraumatic; good dentition, tongue normal appearance, pharynx normal Neck: Supple, no LAD Cardio: RRR, no M/G/R, S1 and S2 normal Resp: No respiratory distress, Lungs CTA in all lobes bilaterally, no wheezes, rales, or rhonchi; wearing O2 via NC while sleeping (no O2 at baseline) Abdomen: Soft, symmetric, nontender; No masses or hepatosplenomegaly; Bowel sounds normoactive MSK: No deformities; pulses palpable and equal; no edema; no edematous joints. Neuro: Awake, alert; Sensation intact bilaterally, however decreased in BLE; CN grossly intact, no facial droop, no meningeal signs; reflexes of lower extremities unable to be obtained; strength decreased BLE with leg raise and dorsi/plantarflexion, ~ 3-4/5. Psych: Appropriate mood and affect; good judgement and insight. Results & Data Results & Data Vital Signs (Past 12 Hours) Vital Signs Temp Pulse Pulse Resp BP BP Pulse Ox 03/03/25 22:07 100 H 20 161/76 H 03/03/25 20:44 107 H 20 161/76 H 95 03/03/25 20:44 106 H 20 95 03/03/25 20:22 37.6 C H 108 H 26 H 161/76 H 96 03/03/25 20:17 116 H O2 Del Method 03/03/25 22:07 Room Air 03/03/25 20:44 Room Air 03/03/25 20:44 Room Air 03/03/25 20:22 Room Air 03/03/25 20:17 Laboratory Results 03/03/25 20:56 Aerobic Blood Culture - Pending Blood Anaerobic Blood Culture - Pending 03/03/25 20:56 Aerobic Blood Culture - Pending Blood Anaerobic Blood Culture - Pending 03/03/25 03/03/25 03/03/25 Unknown 20:25 20:20 WBC 14.14 H RBC 3.13 L Hgb 10.5 L Hct 31.5 L MCV 100.6 H MCH 33.5 MCHC 33.3 RDW Std Deviation 77.8 H RDW Coeff of Hieu 21.4 H Plt Count 408 H MPV 10.1 Immature Gran % (Auto) 1.1 Neut % (Auto) 90.2 Lymph % (Auto) 3.0 [place] % (Auto) 5.1 Eos % (Auto) 0.5 Baso % (Auto) 0.1 Neut # (Auto) 12.74 H Lymph # (Auto) 0.43 L [place] # (Auto) 0.72 H Eos # (Auto) 0.07 Baso # (Auto) 0.02 Immature Gran # (Auto) 0.16 Polychromasia 1+ Anisocytosis Present Sodium 132 L Potassium 4.1 Chloride 99 Carbon Dioxide 26 Anion Gap 7 BUN 25 H Creatinine 0.78 Est Cr Clr Drug Dosing 54.3 eGFR 78.18 BUN/Creatinine Ratio 32.1 H Glucose 471 H* POC Glucose 450 H* Lactate 1.0 Calcium 9.0 Magnesium 2.0 Total Bilirubin 1.4 H AST 12 L ALT 11 Alkaline Phosphatase 57 Total Creatine Kinase 35 Troponin I High Sens 11.5 Total Protein 6.6 Albumin 3.4 Globulin 3.2 Albumin/Globulin Ratio 1.1 TSH 1.946 Urine Color Yellow Urine Appearance Clear Urine pH 7.0 Ur Specific [place] 1.034 H Urine Protein Negative Urine Glucose (UA) 3+ H Urine Ketones 1+ H Urine Blood Negative Urine Nitrite Negative Urine Bilirubin Negative Urine Urobilinogen Negative Ur Leukocyte Esterase Negative Urine Comment Diagnostic Findings Chest X-Ray 03/03/25 20:23 Exam(s): XR CXR 1 VIEW EXAM: XR Chest, 1 View CLINICAL HISTORY: Reason for exam: weakness. TECHNIQUE: Frontal view of the chest. COMPARISON: October 22, 2023 FINDINGS: Lungs: No consolidation. No overt edema. Pleural space: No pleural effusion. No pneumothorax. Heart: Unremarkable. No cardiomegaly. IMPRESSION: No acute cardiopulmonary abnormality. Electronically signed by: Luis Menon MD 03/03/25 22:07 PM Medications Administered 2L NSS Cefepime 2 g IV Acetaminophen 1 g IV ECG Additional Comments: Sinus tachycardia 107 bpm, DC 186, QRS 68, QT/QTc 318/424, PRT 70/2/30 Code Status & VTE Plan Code Status Full Supervising Physician Co-Signing Physician Notes Attending Attestation & Admit Note: Pt seen/examined, chart reviewed, admit care plan d/w GABO Hugo. I agree w/ the coronado components of her admit documentation. 79yo female with HTN, long-term steroid use secondary to PMR/OA, hypothyroidism, T2DM, myelodysplastic syndrome, prior compression fractures, remote seizure disorder. Presented for the 3rd time in the last week to our ER for ongoing b/l LE weakness and ambulatory dysfunction. In addition, for about 2 weeks, she has had poor appetite, increased fatigue, myalgias, sweats/subjective fevers. She does spend a lot of time outdoors doing yard work, etc. No recent travel. No sick contacts. Despite a recent burst of steroids she has not had sustained improvement in her symptoms. PMH/PSH/allergies/meds/sochx - reviewed vitals - T 37.6, BP high, tachy, nl O2 sats gen - lying comfortably in bed, NAD, looks tired mouth - MMM, no thrush neck - no JVD heart - RR, tachy, s1 s2 lungs - CTA b/l abd - soft, NT, ND, BS+ ext - pulses b/l feet 2+ skin - no rash neuro - strength handgrip 5/5; strength arms 5/5 (flexion/extension); dorsiflexion/plantarflexion of feet 2+; 4/5 strength b/l hip flexion; sensation grossly intact to light touch in arms/legs patellar & achilles reflexes absent; upper exts - reflexes 2+ b/l labs reviewed including +Lyme IgG, neg IgM anaplasmosis/babesia smears negative WBC count mildly elevated MRI l-spine from 02/20/25 - multiple compression Fx's (chronic); multilevel DJD/DDD A/P: 1. b/l LE weakness - mainly proximal muscles of hip region 2. ambulatory dysfunction 3. low-grade fever, leukocytosis 4. +Lyme IgG - in light of #1, #2, #3 - disseminated Lyme disease (neuro-Lyme)? 5. uncontrolled T2DM 6. PMR on prednisone 5mg daily -rocephin IV for +Lyme; rocephin will ensure excellent coverage of the BOBBIN LOOSE END FINDER although doxy is reported to have good BOBBIN LOOSE END FINDER penetration as well -neuro consult for their opinion; is presentation c/w neuro-Lyme? other neuro condition such as GBS? -pharmacy glycemic consult for uncontrolled DM Kei Macias MD PG Care Time/CCT Total # of Minutes Spent Total Time Spent with Patient: Total time spent is greater than 50% in coordination of care (as documented) at patient's floor/unit and/or counseling patient: Coding Level of Care Code 56582 INT INP/OBS CARE 3/75MIN Diagnoses Bilateral leg weakness R29.898 Lyme disease A69.20 Hyponatremia E87.1 Hyperglycemia due to type 2 diabetes mellitus E11.65
[2025-03-03] MEDS ORDERED: DEXTROSE 50% 50 ML SYRINGE IV PRN (23:34)
[2025-03-03] MEDS ORDERED: CARBOHYDRATES FOR HYPOGLYCEMIA PO PRN (23:34)
[2025-03-03] MEDS ORDERED: GLUCAGON FOR INJ 1 MG VIAL SQ PRN (23:34)
[2025-03-03] MEDS ORDERED: PHARMACY GLYCEMIC MGMT CONSULT PRN (23:34)
[2025-03-03] MEDS ORDERED: GLUCOSE 10 TAB/TUBE PO PRN (23:34)
[2025-03-03] MEDS ORDERED: GLUCOSE 40% GEL 15 GM TUBE PO PRN (23:34)
[2025-03-03 23:41] LABS: Lyme Screen Rflx Confirmation Positive (Negative)
[2025-03-04] MEDS ORDERED: ACETAMINOPHEN 500 MG TAB PO PRN (00:23)
[2025-03-04 01:05] LABS: Lyme Ab IgG 2nd Tier Confirm Positive (Negative); Lyme Ab IgM 2nd Tier Confirm Negative (Negative)
[2025-03-04] MEDS ORDERED: MAGNESIUM HYDROXIDE SUSP 30 ML UDC PO PRN (01:40)
[2025-03-04] MEDS ORDERED: PHENAZOPYRIDINE 95 MG PO PRN (01:40)
[2025-03-04] MEDS ORDERED: POLYETHYLENE (MIRALAX) 17 GM PACK PO PRN (01:40)
[2025-03-04] MEDS ORDERED: DEXTROSE 50% 50 ML SYRINGE IV PRN (01:40)
[2025-03-04] MEDS: INSULIN ASPART PER UNIT CHARGE SC SCH ×2 (02:40→09:05)
[2025-03-04] MEDS: LANTUS PER UNIT CHARGE SQ STA (04:33)
[2025-03-04] MEDS: LEVOTHYROXINE SODIUM 112 MCG TABLET PO SCH (06:22)
[2025-03-04] MEDS: ROSUVASTATIN CALCIUM 5 MG TAB PO SCH (09:08)
[2025-03-04] MEDS: lamoTRIgine 100 MG TAB PO SCH (09:08)
--- NOTE | 2025-03-04 09:11 | Neurology Consultation ---
Date of Consultation March 04, 2025 Assessment & Plan (1) Diabetic amyotrophy: History of Present Illness Attending Physician: Syed Stone MD History of Present Illness S: pt this morning feeling well. still feeling some b/l leg proximal weakness. mri L spine, no acute lesions. pt did state she stopped her diabetic med few months ago due to side effects and has not watched her sugar or diet last few months. she is also on chronic steroid for her rheumatological issue. chart reviewed. incidental notice of +lyme IgG but IgM negative. admission HPI: 79-year-old female PMHx HTN, long-term steroid use secondary to PMR/OA, hypothyroidism, cardiomegaly, T2DM, dysplastic syndrome, prior compression fractures, history of seizure disorder, and tachycardia presenting for ongoing BLE weakness and angular dysfunction. Patient was evaluated in ER 2 times prior to this current evaluation for the same complaint in the past month of February. She continues to have bilateral leg weakness, stating that it has just continued to get worse. States approximately 2 weeks ago she was in the garden identify hours for a few hours. She states she normally does check her skin for tick bites and did not recall having 1. She has had a few ticks crawling on her before but she did not think that any of them attached to the her. Since 2 weeks ago, she has had increased BLE weakness and generalized feeling of "just not good." Thursday BLOCKER HAND she called Dr. Thony Winter who encouraged her to come to the ED which she did not end up being discharged home. That Thursday she reports she is "not feeling good." The Thursday following that her had to help her walk up and down the steps and reports that he believes she had an episode of passing out that lasted only a few seconds. She states that today, she woke up and was feeling normal but in the afternoon she started to have worsening of her neuropathy, stating that her legs were aching. She was unable to walk up the steps without support, her had to help her. She states that her legs folded below her. She did not hit her head or other body parts because her was there to help catch her. She has not felt feverish, or taking her temperature. States that she has never had a tick bite before. Her back pain was present earlier in the day but not at present while she is resting in bed. She does have urinary incontinence at baseline which has not worsened since the symptoms started, no bowel incontinence. She states that she gets chronic UTIs sometimes her abdomen will feel irritated from this but she is not experiencing that at the present. She did have some nausea earlier in the day but no vomiting. Denies chest pain, SOB, palpitations, diarrhea/constipation, fever/chills, URI symptoms, LUTS, or other pain. She does sometimes take an Aleve to help with her pain. States that she followed with neurologist Dr. Andrews a few years back for her neuropathy and because she had weak reflexes. Patient does have a history of a seizure disorder, stating her last seizure was more than 30 years ago. She did trial gabapentin earlier in the week, but states that she did not feel this was helping her and she did not feel right on the medication so she discontinued it. ED evaluation reveals leukocytosis 14. 24, H&H 10.5/31.5, platelets 408; CMP sodium 132, BUN 25, ratio 42.1, glucose 471, repeat 450, lactate 1; bilirubin 1.4, AST 12; CK 35; troponin 11.5; TSH 1.946; UA negative for infection; CXR no acute findings.; Provided with 2L NSS, cefepime 2 g IV, and acetaminophen 1 g IV in ED. Allergies Allergy/AdvReac Type Severity Reaction Status Date / Time nitrofurantoin Allergy dizzy, gi Verified 02/15/25 09:01 [From Macrobid] upset ampicillin AdvReac Intermediate Diarrhea Verified 02/15/25 09:01 Sulfa (Sulfonamide AdvReac Mild DIZZY Verified 02/15/25 09:01 Antibiotics) Home Medications Medication Instructions Recorded Confirmed Type cholecalciferol (vitamin D3) 50 2,000 units PO QAM 03/13/20 03/03/25 History mcg (2,000 unit) tablet lamotrigine 150 mg tablet 150 mg PO BID #180 tabs 06/14/24 03/03/25 Rx phenazopyridine 95 mg tablet (Azo 95 mg PO BID PRN pain relief 08/26/24 03/03/25 History Urinary Pain Relief) rosuvastatin 10 mg tablet 5 mg PO DAILY 08/26/24 03/03/25 History vitamins A,C,T-tukh-zmjqiq 4,296 1 cap PO BID 08/26/24 03/03/25 History mcg-226 mg-90 mg capsule (PreserVision AREDS) romosozumab-aqqg 210 mg/2.34 210 mg (2.34 mL) subcut ONCE #2.34 10/21/24 03/03/25 Rx mL(105 mg/1.17 mL x2)subcutaneous mL syringe ([facility]) lisinopril 10 mg tablet 10 mg PO QAM #90 tabs 12/02/24 03/03/25 Rx levothyroxine 112 mcg tablet 112 mcg PO UD #90 tabs 01/24/25 03/03/25 Rx prednisone 5 mg tablet 5 mg PO QAM #90 tabs 01/24/25 03/03/25 Rx gabapentin 100 mg capsule 100 mg PO TID PRN back pain #30 02/20/25 Rx caps Patient History Medical History Cerumen debris on tympanic membrane of right ear Bone spur of right foot Asymptomatic age-related postmenopausal state Hx of radioactive iodine thyroid ablation 2011 History of anemia Hypothyroidism Dysphagia occasionally, makes sure to drink fluids w/meals Dysuria takes AZO daily per 's suggestion Back pain with sciatica Compression fracture of L2 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 Esophageal spasm PMR (polymyalgia rheumatica) Undifferentiated connective tissue disease Venous stasis of both lower extremities Urinary tract infection hx-"gets frequently, dr recommended she take Azo daily" Compression fracture of second lumbar vertebra Surgical History History of esophagogastroduodenoscopy (EGD) Hx of colonoscopy H/O tubal ligation History of colposcopy Family History Mother Diabetes Denies family history of Ovarian cancer Prostate cancer Myocardial infarction Breast cancer Colorectal cancer Social History Smoking Status: Never smoker Tobacco Type: Cigarettes Age Started Using Tobacco: 20; Age Quit Using Tobacco: 64; packs per day: 0.10; Cigarettes Per Day: 1 pack in two weeks; Second Hand Exposure: No; Do You Dip or Chew Tobacco: No; Hx Alcohol Use: No Hx Substance Use: No Preferred Language: Belarusian Communication Ability: Effective Visual Impairment: No Limitations Hearing Ability: Use of Hearing Aid Finisher Brush Required: No Beliefs That Will Affect Care: None marital status: Current Living Situation: Spouse current occupational status: retired Other Information That Helps Us Care for You: No Feels Safe at Home: Yes Safety Concerns: Feels Safe At This Time Childhood Exposure to Second-Hand Smoke: No Dental Care, Regularly: Yes Physical Activity Frequency: Daily Seatbelt Use: always Sunscreen Use: Yes Assistive Devices: Walker Exam (Neuro) Physical Exam: HEENT: normocephalic grossly Neuro: Mental: AOx4, fluent speech, normal comprehension, no apraxia, CN: Full EOM, symmetric face, Motor: No abnormal movements, normal tone, 5/5 t/o bilaterally distally knee and ankles. 4/5 hip flexion b/l. Sens: intact to touch b/l grossly Coord: intact DTR: absent b/l lower limbs. Impression: 79 yo female with overall picture consistent with diabetic lumbosacral radiculoplexus neuropathy (DLRPN), also known as daibetic amyotrophy. It usually presents with acute/subacute course of lower limb proximal weakness with reduced/absent DTRs in setting of uncontrolled DM/hyperglycemia. I believe lyme IgG is chronic infection, incidental finding and not likely the main cause for weakness. Recommendations: strict DM control and avoid hyperglycemia physical therapy not much else to offer at this from neurology. no need for EMG call again if new question. Chart reviewed I have spent more than 50% educating patient about potential diagnosis and neurological evaluation and coordinating care with patient's treatment team. Total time spent (including chart review and coordination of care): 50 min (this includes chart review). Results & Data Vital Signs (Past 12 Hours) Vital Signs Temp Pulse Pulse Pulse Resp BP BP 03/04/25 07:23 37.1 C 75 17 120/65 03/04/25 07:10 37 C 80 18 126/70 03/04/25 01:40 36.6 C 18 153/78 H 03/04/25 01:40 36.6 C 82 18 153/78 H 03/04/25 01:19 81 19 113/66 03/04/25 00:17 82 03/03/25 23:44 82 18 132/76 03/03/25 22:58 03/03/25 22:07 100 H 20 161/76 H Pulse Ox O2 Del Method O2 Flow Rate 03/04/25 07:23 95 Room Air 03/04/25 07:10 95 Room Air 03/04/25 01:40 95 Room Air 03/04/25 01:40 95 Room Air 03/04/25 01:19 98 Room Air 03/04/25 00:17 03/03/25 23:44 97 Nasal Cannula 2 03/03/25 22:58 85 L Room Air, Nasal Cannula 0 03/03/25 22:07 Room Air PG Care Time/CCT Total # of Minutes Spent Total Time Spent with Patient: Total time spent is greater than 50% in coordination of care (as documented) at patient's floor/unit and/or counseling patient: Coding Level of Care Code 76487 IN/OBS CONSULT LVL 3,45M Diagnoses 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
[2025-03-04] MEDS: cefTRIAXone SODIUM 2,000 MG/50 ML BAG IV SCH (09:14)
--- NOTE | 2025-03-04 09:56 | Hospitalist Progress Note ---
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 ED evaluation reveals leukocytosis 14. 24, H&H 10.5/31.5, platelets 408; CMP sodium 132, BUN 25, ratio 42.1, glucose 471, repeat 450, lactate 1; bilirubin 1.4, AST 12; CK 35; troponin 11.5; TSH 1.946; UA negative for infection; CXR no acute findings.; Provided with 2L NSS, cefepime 2 g IV, and acetaminophen 1 g IV in ED. #PMR/OA/Chronic steroids- Prednisone 5mg daily - continue #Seizure disorder- Last seizure > 30 years ago; Lamotrigine - continue #Peripheral neuropathy- Gabapentin did not help, utilizing OTC gels #HTN- Lisinopril - continue #MDS- Follows with Dr. Valadez, most recent visit 08/17/2024 - Trend CBC #Hypothyroidism- TSH 1.946; Levothyroxine daily except for on Sundays - continue #Tachycardia/CAD- Coronary artery calcification identified on chest imaging Jul 2024 so on rosuvastatin now; Echo Aug 2024 showed LV - Continue rosuvastatin Admission and Anticipated Discharge Date Admission Date: March 03, 2025 Subjective No events overnight. Pt states she still feels leg weakness. Review of Systems Review of Systems: CONST: Negative for fever, body aches and chills. HENT: Negative for neck pain/stiffness, headache, congestion, sore throat, swelling. EYES: Negative for discharge/pain or vision changes. RESP: Negative for cough/hemoptysis and shortness of breath. CV: Negative chest pain, difficulty breathing, palpitations. ABD: Negative pain, nausea, vomiting. : Negative increase frequency, dysuria, blood in urine or stool. MUSC: Negative for muscle aches, edema. SKIN: Negative rash, lesions/sores. NEURO: Negative headache, dizziness, weakness. Physical Exam Physical Exam: GENERAL APPEARANCE NAD, activity normal for age, well developed/ well nourished, no cyanosis, pallor, or diaphoresis. EYES lids/conjunctiva normal. EARS/NOSE/THROAT Mucous membranes moist, nares normal, lips/teeth normal uvula midline without oral pharyngeal erythema, exud ate or swelling TMs normal bilaterally. No lymphangitis/lymphedema. HEAD/NECK normocephalic atraumatic, no facial trauma, neck is supple. RESPIRATORY respiratory effort normal, speaks in full sentences, no tripod position, no accessory muscle use. Lungs clear to auscultation without rhonchi, wheezes, rales CARDIAC Regular rate and rhythm, no edema. ABDOMINAL Soft, ND/NT. No evidence of fluid wave. No pulsatile masses on exam, rebound tenderness, Mcadams sign or pain over Mcburney's point. MUSCLES/EXTREMITIES No abnormal range of motion, no swelling. SKIN Warm, pink and dry. No rashes, dermatoses, petechiae or lesions. NEUROLOGICAL Speech is clear and appropriate. Normal level of consciousness. Gait and coordination are normal. 5/5 strength in all extremities. PSYCH Normal mood and affect. Judgement/competence is appropriate Results & Data Results & Data Vital Signs (Past 12 Hours) Vital Signs Temp Pulse Pulse Pulse Resp BP BP 03/04/25 07:23 37.1 C 75 17 120/65 03/04/25 07:10 37 C 80 18 126/70 03/04/25 01:40 36.6 C 18 153/78 H 03/04/25 01:40 36.6 C 82 18 153/78 H 03/04/25 01:19 81 19 113/66 03/04/25 00:17 82 03/03/25 23:44 82 18 132/76 03/03/25 22:58 03/03/25 22:07 100 H 20 161/76 H Pulse Ox O2 Del Method O2 Flow Rate 03/04/25 07:23 95 Room Air 03/04/25 07:10 95 Room Air 03/04/25 01:40 95 Room Air 03/04/25 01:40 95 Room Air 03/04/25 01:19 98 Room Air 03/04/25 00:17 03/03/25 23:44 97 Nasal Cannula 2 03/03/25 22:58 85 L Room Air, Nasal Cannula 0 03/03/25 22:07 Room Air PG Care Time/CCT Total # of Minutes Spent Total Time Spent with Patient: Total time spent is greater than 50% in coordination of care (as documented) at patient's floor/unit and/or counseling patient: Coding Level of Care Code 95438 SUB INP/OBS CARE 2/35MIN Diagnoses Bilateral leg weakness R29.898 Lyme disease A69.20 Hyponatremia E87.1 Hyperglycemia due to type 2 diabetes mellitus E11.65
[2025-03-04] MEDS: ACETAMINOPHEN 325 MG TAB PO PRN (12:29)
[2025-03-04] MEDS: GADOBUTROL 65ML VIAL IV ONE (13:30)
--- NOTE | 2025-03-04 14:08 | Magnetic Resonance Report ---
MR lumbar spine wo/w con CLINICAL HISTORY: lower ext weakness. COMPARISON: 02/20/[address] of 08/05/2024 TECHNIQUE: Multiplanar, multi sequence MRI of the lumbar spine was performed without intravenous cont rast. FINDINGS: Conus medullaris terminates normally at L1. Small lipoma again seen at the filum terminale. 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 There is stable height loss at the L2, L3, and L5 vertebral bodies. No acute lumbar spine fracture se en. There is stable grade 1 anterolisthesis of L2 on 3. Otherwise normal alignment. There is diffuse degenerative disc disease and lower lumbar facet and ligamentum flavum hypertrophy. No abnormal enhan cement seen. L1-2: There is a disc bulge with ligamentum flavum and facet hypertrophy with stable mild central can al narrowing. Stable moderate left and mild right neural foraminal narrowing. L2-3: There is a disc bulge with ligamentum flavum and facet hypertrophy. No significant central bernadette l narrowing. There is moderate left and mild right neural foraminal narrowing, stable. L3-4: There is a minimal disc bulge. No significant central canal or neural foraminal narrowing. L4-5: There is a mild disc bulge. No significant central canal narrowing. There is moderate right brenda roforaminal narrowing. L5-S1: No significant disc bulge. No significant central canal or neural foraminal narrowing. IMPRESSION: 1. No acute lumbar spine fracture seen. Stable old lumbar vertebral body compression abnormalities. 2. Diffuse degenerative changes as described. ACT 112: Negative or not required by law. The above report was generated using voice recognition software. It may contain grammatical, syntax o r spelling errors. Electronically signed by: Roberto Cantrell M.D. 03/04/2025 2:05 PM
--- NOTE | 2025-03-04 14:14 | Pharmacy Report ---
Pharmacy Glycemic Short Note 2 - Date of Service March 04, 2025 - Glycemic Short BSG Results (Last 24 hours): 03/03/25 03/03/25 03/04/25 20:20 20:25 00:55 Glucose 471 H* POC Glucose 450 H* 411 H* 03/04/25 03/04/25 03/04/25 01:02 01:22 04:07 Glucose 353 H* POC Glucose 343 H* 269 H 03/04/25 03/04/25 07:52 12:19 Glucose POC Glucose 118 H 272 H OUTPATIENT ANTIDIABETIC REGIMEN: * n/A * a1C 8.3% 02/27/25 ASSESSMENT: * Patient admitted with b/l leg weakness. Hyperglycemia on admission. * Chronic steroid use, currently on 5 mg daily. * Fasting this AM 138 mg/dL- will scale lantus for PM * prandial BSG continues to be elevated today, will tighten carb ratio to weight stress/3. Prednisone will likely wears off throughout day PLAN FOR INPATIENT GLYCEMIC CONTROL: * Hold outpatient oral diabetes medications * Basal insulin * Lantus 0/5/10 units SQ BID- received 5 units x 1 this morning * Bolus insulin * NovoLog per scale ACHS or Q6hrs while NPO * Goal Range: Low 110 mg/dL - High 140 mg/dL * Correction Factor: 40 mg/dL/unit * Nutritional / Prandial insulin per carb ratio of 1 unit per 10 grams CHO consumed
[2025-03-04] MEDS: IBUPROFEN 200 MG TAB PO PRN (14:15)
[2025-03-04] MEDS: LANTUS PER UNIT CHARGE SQ SCH (21:11)
[2025-03-05] MEDS: INSULIN ASPART PER UNIT CHARGE SC ONE (03:32)
[2025-03-05 08:24] LABS: Hematocrit (blood only) 29.5 % (37.0-47.0); Hemoglobin 9.9 g/dl (12.0-16.0); Mean Corpuscular Hemoglobin 34.1 pg (25.0-34.0); Mean Corpuscular Volume 101.7 fL (80.0-100.0); Platelet Count 426 K/uL (130-400); RDW Standard Deviation 79.1 fL (36.4-46.3); Red Blood Count 2.90 M/uL (4.20-5.40); White Blood Count 6.17 K/ul (4.8-10.8)
[2025-03-05 08:41] LABS: Anion Gap 8.0 (3-11); Blood Urea Nitrogen 24.0 mg/dl (6-23); Calcium 8.9 mg/dl (8.6-10.3); Carbon Dioxide 25.0 mmol/L (21-32); Chloride 106.0 mmol/L (98-107); Creatinine Clr Calc Pharmacy 66.1 ml/min; Glucose 239.0 mg/dl (70-99(Fasting)); Potassium 3.7 mmol/L (3.5-5.1); Sodium 139.0 mmol/L (136-145)
--- NOTE | 2025-03-05 10:29 | Hospitalist Progress Note ---
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 ED evaluation reveals leukocytosis 14. 24, H&H 10.5/31.5, platelets 408; CMP sodium 132, BUN 25, ratio 42.1, glucose 471, repeat 450, lactate 1; bilirubin 1.4, AST 12; CK 35; troponin 11.5; TSH 1.946; UA negative for infection; CXR no acute findings.; Provided with 2L NSS, cefepime 2 g IV, and acetaminophen 1 g IV in ED. #PMR/OA/Chronic steroids- Prednisone 5mg daily - continue #Seizure disorder- Last seizure > 30 years ago; Lamotrigine - continue #Peripheral neuropathy- Gabapentin did not help, utilizing OTC gels #HTN- Lisinopril - continue #MDS- Follows with Dr. Valadez, most recent visit 08/17/2024 - Trend CBC #Hypothyroidism- TSH 1.946; Levothyroxine daily except for on Sundays - continue #Tachycardia/CAD- Coronary artery calcification identified on chest imaging Jul 2024 so on rosuvastatin now; Echo Aug 2024 showed LV - Continue rosuvastatin Plan to d/c home 03/06 This document was dictated utilizing CLEAR. Please excuse any grammatical errors that may be secondary to use of this software. Admission and Anticipated Discharge Date Admission Date: March 03, 2025 Subjective No events overnight. Pt states she still feels leg weakness. Review of Systems Review of Systems: CONST: Negative for fever, body aches and chills. HENT: Negative for neck pain/stiffness, headache, congestion, sore throat, swelling. EYES: Negative for discharge/pain or vision changes. RESP: Negative for cough/hemoptysis and shortness of breath. CV: Negative chest pain, difficulty breathing, palpitations. ABD: Negative pain, nausea, vomiting. : Negative increase frequency, dysuria, blood in urine or stool. MUSC: Negative for muscle aches, edema. SKIN: Negative rash, lesions/sores. NEURO: Negative headache, dizziness, weakness. Physical Exam Physical Exam: GENERAL APPEARANCE NAD, activity normal for age, well developed/ well nourished, no cyanosis, pallor, or diaphoresis. EYES lids/conjunctiva normal. EARS/NOSE/THROAT Mucous membranes moist, nares normal, lips/teeth normal uvula midline without oral pharyngeal erythema, exudate or swelling TMs normal bilaterally. No lymphangitis/lymphedema. HEAD/NECK normocephalic atraumatic, no facial trauma, neck is supple. RESPIRATORY respiratory effort normal, speaks in full sentences, no tripod position, no accessory muscle use. Lungs clear to auscultation without rhonchi, wheezes, rales CARDIAC Regular rate and rhythm, no edema. ABDOMINAL Soft, ND/NT. No evidence of fluid wave. No pulsatile masses on exam, rebound tenderness, Mcadams sign or pain over Mcburney's point. MUSCLES/EXTREMITIES No abnormal range of motion, no swelling. SKIN Warm, pink and dry. No rashes, dermatoses, petechiae or lesions. NEUROLOGICAL Speech is clear and appropriate. Normal level of consciousness. Gait and coordination are normal. 5/5 strength in all extremities. PSYCH Normal mood and affect. Judgement/competence is appropriate Results & Data Results & Data Vital Signs (Past 12 Hours) Vital Signs Temp Pulse Resp BP Pulse Ox O2 Del Method 03/05/25 07:27 36.6 C 90 16 141/81 H 96 Room Air PG Care Time/CCT Total # of Minutes Spent Total Time Spent with Patient: Total time spent is greater than 50% in coordination of care (as documented) at patient's floor/unit and/or counseling patient: Coding Level of Care Code 25260 SUB INP/OBS CARE 2/35MIN Diagnoses Bilateral leg weakness R29.898 Lyme disease A69.20 Hyponatremia E87.1 Hyperglycemia due to type 2 diabetes mellitus E11.65
--- NOTE | 2025-03-06 09:41 | Discharge Summary ---
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 ED evaluation reveals leukocytosis 14. 24, H&H 10.5/31.5, platelets 408; CMP sodium 132, BUN 25, ratio 42.1, glucose 471, repeat 450, lactate 1; bilirubin 1.4, AST 12; CK 35; troponin 11.5; TSH 1.946; UA negative for infection; CXR no acute findings.; Provided with 2L NSS, cefepime 2 g IV, and acetaminophen 1 g IV in ED. #PMR/OA/Chronic steroids- Prednisone 5mg daily - continue #Seizure disorder- Last seizure > 30 years ago; Lamotrigine - continue #Peripheral neuropathy- Gabapentin did not help, utilizing OTC gels #HTN- Lisinopril - continue #MDS- Follows with Dr. Valadez, most recent visit 08/17/2024 - Trend CBC #Hypothyroidism- TSH 1.946; Levothyroxine daily except for on Sundays - continue #Tachycardia/CAD- Coronary artery calcification identified on chest imaging Jul 2024 so on rosuvastatin now; Echo Aug 2024 showed LV - Continue rosuvastatin Plan to d/c home 03/06 This document was dictated utilizing Optireno. Please excuse any grammatical errors that may be secondary to use of this software. Admission HPI Per Admitting Provider 79-year-old female PMHx HTN, long-term steroid use secondary to PMR/OA, hypothyroidism, cardiomegaly, T2DM, dysplastic syndrome, prior compression fractures, history of seizure disorder, and tachycardia presenting for ongoing BLE weakness and ambulatory dysfunction. Patient was evaluated in ER 2 times prior to this current evaluation for the same complaint in the past month of February. She continues to have bilateral leg weakness, stating that it has just continued to get worse. States approximately 2 weeks ago she was in the garden identify hours for a few hours. She states she normally does check her skin for tick bites and did not recall having 1. She has had a few ticks crawling on her before but she did not think that any of them attached to the her. Since 2 weeks ago, she has had increased BLE weakness and generalized feeling of "just not good." Thursday CEREAL MILLER she called Dr. Thony Winter who encouraged her to come to the ED which she did not end up being discharged home. That Thursday she reports she is "not feeling good." The Thursday following that her had to help her walk up and down the steps and reports that he believes she had an episode of passing out that lasted only a few seconds. She states that today, she woke up and was feeling normal but in the afternoon she started to have worsening of her neuropathy, stating that her legs were aching. She was unable to walk up the steps without support, her had to help her. She states that her legs folded below her. She did not hit her head or other body parts because her was there to help catch her. She has not felt feverish, or taking her temperature. States that she has never had a tick bite before. Her back pain was present earlier in the day but not at present while she is resting in bed. She does have urinary incontinence at baseline which has not worsened since the symptoms started, no bowel incontinence. She states that she gets chronic UTIs sometimes her abdomen will feel irritated from this but she is not experiencing that at the present. She did have some nausea earlier in the day but no vomiting. Denies chest pain, SOB, palpitations, diarrhea/constipation, fever/chills, URI symptoms, LUTS, or other pain. She does sometimes take an Aleve to help with her pain. States that she followed with neurologist Dr. Andrews a few years back for her neuropathy and because she had weak reflexes. Patient does have a history of a seizure disorder, stating her last seizure was more than 30 years ago. She did trial gabapentin earlier in the week, but states that she did not feel this was helping her and she did not feel right on the medication so she discontinued it. ED evaluation reveals leukocytosis 14. 24, H&H 10.5/31.5, platelets 408; CMP sodium 132, BUN 25, ratio 42.1, glucose 471, repeat 450, lactate 1; bilirubin 1.4, AST 12; CK 35; troponin 11.5; TSH 1.946; UA negative for infection; CXR no acute findings.; Provided with 2L NSS, cefepime 2 g IV, and acetaminophen 1 g IV in ED. Please see Dr. Macias's attestation for adjustments/additions to treatment plan. Discharge Exam GENERAL APPEARANCE NAD, activity normal for age, well developed/ well nourished, no cyanosis, pallor, or diaphoresis. EYES lids/conjunctiva normal. EARS/NOSE/THROAT Mucous membranes moist, nares normal, lips/teeth normal uvula midline without oral pharyngeal erythema, exudate or swelling TMs normal bilaterally. No lymphangitis/lymphedema. HEAD/NECK normocephalic atraumatic, no facial trauma, neck is supple. RESPIRATORY respiratory effort normal, speaks in full sentences, no tripod position, no accessory muscle use. Lungs clear to auscultation without rhonchi, wheezes, rales CARDIAC Regular rate and rhythm, no edema. ABDOMINAL Soft, ND/NT. No evidence of fluid wave. No pulsatile masses on exam, rebound tenderness, Mcadams sign or pain over Mcburney's point. MUSCLES/EXTREMITIES No abnormal range of motion, no swelling. SKIN Warm, pink and dry. No rashes, dermatoses, petechiae or lesions. NEUROLOGICAL Speech is clear and appropriate. Normal level of consciousness. Gait and coordination are normal. 5/5 strength in all extremities. PSYCH Normal mood and affect. Judgement/competence is appropriate Discharge Plan Discharge Items Patient Disposition: Home - Self-Care Reason For Visit: BLE WEAKNESS,HYPERGLYCEMIA Discharge Diagnosis: diabetic amyotrophy Condition on Discharge: Fair Activity: Resume your previous activity Non-emergency contact: Primary Care Provider Call non-emergency contact if: you have any medication questions Follow-up/Referrals: Jonny Lozano MD [Primary Care Provider] - Diet: Carb Consistent or DM2 Addtl Attending Provider Instructions: Follow up with PMD in 2 weeks Pending Studies at Discharge: No Stand-Alone Forms: DoorDash, Smoking Cessation Medications and DC Order Prescriptions: New doxycycline hyclate 100 mg capsule 100 mg PO BID 10 Days Qty: 20 0RF Continued lamotrigine 150 mg tablet 150 mg PO BID Qty: 180 3RF Evenity 210mg/2.34mL ( 105mg/1.17mLx2) syringe 210 mg subcut ONCE Qty: 2.34 10RF Rx Instructions: inject monthly for 12 monthly doses lisinopril 10 mg tablet 10 mg PO QAM Qty: 90 1RF prednisone 5 mg tablet 5 mg PO QAM Qty: 90 3RF levothyroxine 112 mcg tablet 112 mcg PO UD Qty: 90 1RF Rx Instructions: 6 days a week only-thursday through thursday only QAM cholecalciferol (vitamin D3) 50 mcg (2,000 unit) tablet 2,000 units PO QAM rosuvastatin 10 mg tablet 5 mg PO DAILY PreserVision AREDS 4,296 mcg-226 mg-90 mg capsule 1 cap PO BID phenazopyridine [Azo Urinary Pain Relief] 95 mg tablet 95 mg PO BID PRN (Reason: pain relief) gabapentin 100 mg capsule 100 mg PO TID PRN (Reason: back pain) Qty: 30 0RF Discharge Orders: Discharge Order (Routine); Ordered 03/06/25 Ordered By: Syed Stone Admission Data Admit Date/Time: 03/03/25 23:34 Attending Provider: Syed Stone Admit Provider: Kei Macias Primary Care Provider: Jonny Lozano V. Other Providers: Kei Macias; Adi Cabrera; Barbara Sherman; Margy Hauser; Melanie Blancas; Elvira Diego; Sariah Worley; Tish Muñiz Hospital Stay Data Consultations 03/03/25 22:19 ED Decision to Admit Stat 03/04/25 01:40 Consult Neurology Routine 03/04/25 07:59 Consult Infectious Diseases Routine Diagnostic Imagining Performed 03/04/25 12:28 MRI Lumbar Spine [MR lumbar spine wo/w con] Stat Pending Results Patient Have Any Pending Studies at Discharge: No Discharge Instructions Given to Patient (Per Discharging Provider) Follow up with PMD in 2 weeks Total Time Total Time Spent Total Time Spent (In Minutes): 50 Coding Level of Care Code 10968 INP/OBS DISCH >30 MIN Diagnoses Bilateral leg weakness R29.898 Lyme disease A69.20 Hyponatremia E87.1 Hyperglycemia due to type 2 diabetes mellitus E11.65
--- NOTE | 2025-03-06 09:53 | Infectious Disease Consult ---
Date of Consultation March 06, 2025 Assessment & Plan (1) Positive Lyme disease serology: (2) Diabetic amyotrophy: (3) Hyperglycemia due to type 2 diabetes mellitus: Plan 79yo F with h/o PMR/OA with long-term steroid use, T2DM, dysplastic syndrome, hypothyroidism, cardiomegaly, seizure d/o who presented on 03/03 with progressively worsening bl lower extremity weakness and ambulatory dysfunction. In the ER, she was afebrile, vss. Initial labs with WBC 14.14, Cr 0.78. AST/ALT not elevated. Lactate neg. Elevated glucose to 400s. UA neg. Tickborne studies sent, Lyme screen positive, IgG+, IgM neg. CXR neg. MRI L spine w/o acute findings. She has been started on CTX. 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 ID consulted 03/06. No prior Lyme dx, prior tick noted on her that was removed, not engorged, no ppx. Present symptoms are not consistent with neuro lyme. No reported prior clinical sx c/w Lyme disease. Lyme screen can be false positive (more likely) and if not, the benefit of treating asymptomatic individuals is unclear. Would therefore stop antibiotics. # Positive lyme serology # Lower extremity weakness # T2DM - Adriana stopped CTX - would not advise treating with doxycycline - rest of care per primary team Will discontinue active follow up at this time. Please do not hesitate to reconsult the Infectious Diseases service as needed. Melanie Blancas MD [facility], Division of Infectious Diseases [facility]: [phone] Consultation Information Consultation was provided via telemedicine using two-way real-time interactive telecommunication between the patient and the telemedicine provider. For the duration of the visit, the provider was performing the assessment from a different facility than the patient. This includesuse of bluetooth stethoscope forauscultationperformed by the telepresenter that the telemedicine provider can hear if described in the physical exam. Gas [employer]ender contact information: Please call [facility] Call Center . (Phone Number For Physician Use Only) After establishing a telemedicine visit, patient was: Patient was verified with two unique identifiers, Patient/authorized rep acknowledged consent and understanding and Gave permission to continue telehealth session Time Spent with Patient: Initial => 75 min History of Present Illness Reason for Consultation: Lyme's positive Attending Physician: Syed Stone MD History of Present Illness 79yo F with h/o PMR/OA with long-term steroid use, T2DM, dysplastic syndrome, hypothyroidism, cardiomegaly, seizure d/o who presented on 03/03 with progressively worsening bl lower extremity weakness and ambulatory dysfunction. She was seen in the ED twice before for similar complaints in the past month of February. Two weeks ago, she was in the garden for a few hours and then noticed increased BLE weakness and generalized feeling unwell. She was seen in the ED but discharged home. Over the week, her had to help her walk up and down the steps and reported an episode of passing out for a few seconds. On day of admission, she had woken feeling normal but in the afternoon, started having aching legs with inability to walk up the steps without support. No fevers. Had back pain before, but had resolved. Has baseline urinary incontinence, no bowel issues. Noted nausea, no vomiting. No chest pain, SOB, diarrhea, URI sx. She has not had any tick bites, normally checks for ticks. Has had a few ticks crawling on her before but doesnt think any of them attached. In the ER, she was afebrile, vss. Initial labs with WBC 14.14, Cr 0.78. AST/ALT not elevated. Lactate neg. Elevated glucose to 400s. UA neg. Tickborne studies sent, Lyme screen positive, IgG+, IgM neg. CXR neg. MRI L spine w/o acute findings. She has been started on CTX. 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 ID consulted 03/06. On evaluation, patient reports feeling 90% back to herself. She has neuropathy in her feet and says that she had developed numbness in her thighs and weakness. [place] [address], has [place] tress around her. She had a tick bite once, but took it off, was not engorged, and did not qualify for prophylaxis. She did not have a rash at that time or since. No other tick bites. No prior dx of Lyme or tx. She does not have any facial weakness/changes, no headache. Allergies Allergy/AdvReac Type Severity Reaction Status Date / Time nitrofurantoin Allergy dizzy, gi Verified 02/15/25 09:01 [From Macrobid] upset ampicillin AdvReac Intermediate Diarrhea Verified 02/15/25 09:01 Sulfa (Sulfonamide AdvReac Mild DIZZY Verified 02/15/25 09:01 Antibiotics) Home Medications Medication Instructions Recorded Confirmed Type cholecalciferol (vitamin D3) 50 2,000 units PO QAM 03/13/20 03/03/25 History mcg (2,000 unit) tablet lamotrigine 150 mg tablet 150 mg PO BID #180 tabs 06/14/24 03/03/25 Rx phenazopyridine 95 mg tablet (Azo 95 mg PO BID PRN pain relief 08/26/24 03/03/25 History Urinary Pain Relief) rosuvastatin 10 mg tablet 5 mg PO DAILY 08/26/24 03/03/25 History vitamins A,C,I-qouz-vbkikh 4,296 1 cap PO BID 08/26/24 03/03/25 History mcg-226 mg-90 mg capsule (PreserVision AREDS) romosozumab-aqqg 210 mg/2.34 210 mg (2.34 mL) subcut ONCE #2.34 10/21/24 03/03/25 Rx mL(105 mg/1.17 mL x2)subcutaneous mL syringe (Evenity) lisinopril 10 mg tablet 10 mg PO QAM #90 tabs 12/02/24 03/03/25 Rx levothyroxine 112 mcg tablet 112 mcg PO UD #90 tabs 01/24/25 03/03/25 Rx prednisone 5 mg tablet 5 mg PO QAM #90 tabs 01/24/25 03/03/25 Rx gabapentin 100 mg capsule 100 mg PO TID PRN back pain #30 02/20/25 Rx caps doxycycline hyclate 100 mg capsule 100 mg PO BID 10 days #20 caps 03/06/25 Rx Patient History Medical History Cerumen debris on tympanic membrane of right ear Bone spur of right foot Asymptomatic age-related postmenopausal state Hx of radioactive iodine thyroid ablation 2011 History of anemia Hypothyroidism Dysphagia occasionally, makes sure to drink fluids w/meals Dysuria takes AZO daily per dr's suggestion Back pain with sciatica Compression fracture of L2 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 Esophageal spasm PMR (polymyalgia rheumatica) Undifferentiated connective tissue disease Venous stasis of both lower extremities Urinary tract infection hx-"gets frequently, dr recommended she take Azo daily" Compression fracture of second lumbar vertebra Surgical History History of esophagogastroduodenoscopy (EGD) Hx of colonoscopy H/O tubal ligation History of colposcopy Family History Mother Diabetes Denies family history of Ovarian cancer Prostate cancer Myocardial infarction Breast cancer Colorectal cancer Social History Smoking Status: Never smoker Tobacco Type: Cigarettes Age Started Using Tobacco: 20; Age Quit Using Tobacco: 64; packs per day: 0.10; Cigarettes Per Day: 1 pack in two weeks; Second Hand Exposure: No; Do You Dip or Chew Tobacco: No; Hx Alcohol Use: No Hx Substance Use: No Preferred Language: Maori Communication Ability: Effective Visual Impairment: No Limitations Hearing Ability: Use of Hearing Aid Marketing Analytics Analyst Required: No Beliefs That Will Affect Care: None marital status: Current Living Situation: Spouse current occupational status: retired Feels Safe at Home: Yes Childhood Exposure to Second-Hand Smoke: No Dental Care, Regularly: Yes Physical Activity Frequency: Daily Seatbelt Use: always Sunscreen Use: Yes Assistive Devices: Walker Review of System 10-point review of systems reviewed and are negative except for as above. Physical Exam Physical Exam: General: Awake, alert, no acute distress HEENT: NC/AT, EOMI, mmm Neck: supple, no LAD Lungs: respirations non-labored Heart: nl peripheral perfusion Abdomen: soft, NT/ND Back: no spinal tenderness Ext: no LE edema, no joint tenderness/swelling Skin: no rash Neuro: moving all extremities, no facial droop Results & Data Vital Signs (Past 12 Hours) Vital Signs Temp Pulse Resp BP Pulse Ox O2 Del Method 03/06/25 07:05 36.7 C 96 H 18 151/73 H 97 Room Air Laboratory Results Labs reviewed. Diagnostic Findings Imaging reviewed. 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
--- NOTE | 2025-03-06 15:10 | Electrocardiogram Report ---
Test Reason : Blood Pressure : */* mmHG Vent. Rate : 107 BPM Atrial Rate : 107 BPM P-R Int : 186 ms QRS Dur : 68 ms QT Int : 318 ms P-R-T Axes : 70 2 3 degrees QTcB Int : 424 ms Sinus tachycardia Possible Inferior infarct (cited on or before 20-Feb-2025) Abnormal ECG When compared with ECG of 22-Feb-2025 08:29, No significant change Confirmed by Omar Stewart ([id number]) on 03/06/2025 3:10:07 PM Referred By: REFERRED SELF Confirmed By: Omar Stewart
--- NOTE | 2025-03-06 16:30 | XCELERA ---
[id number]
[2025-03-06] MEDS: MECLIZINE 12.5 MG TAB PO PRN (17:07)
[2025-03-07] MEDS ORDERED: LANTUS PER UNIT CHARGE SQ SCH (09:00)
--- NOTE | 2025-03-07 11:24 | Hospitalist Progress Note ---
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 (2) Lyme disease: Plan: -IgG + but IgM negative -likely chronic -currently on Rocephin, will change to doxycycline upon d/c (3) Hyponatremia: (4) Hyperglycemia due to type 2 diabetes mellitus: Plan: -RISS Plan 79-year-old female PMHx HTN, long-term steroid use secondary to PMR/OA, hypothyroidism, cardiomegaly, T2DM, dysplastic syndrome, prior compression fractures, history of seizure disorder, and tachycardia presenting for ongoing BLE weakness. ED evaluation reveals leukocytosis 14. 24, H&H 10.5/31.5, platelets 408; CMP sodium 132, BUN 25, ratio 42.1, glucose 471, repeat 450, lactate 1; bilirubin 1.4, AST 12; CK 35; troponin 11.5; TSH 1.946; UA negative for infection; CXR no acute findings.; Provided with 2L NSS, cefepime 2 g IV, and acetaminophen 1 g IV in ED. #PMR/OA/Chronic steroids- Prednisone 5mg daily - continue #Seizure disorder- Last seizure > 30 years ago; Lamotrigine - continue #Peripheral neuropathy- Gabapentin did not help, utilizing OTC gels #HTN- Lisinopril - continue #MDS- Follows with Dr. Valadez, most recent visit 08/17/2024 - Trend CBC #Hypothyroidism- TSH 1.946; Levothyroxine daily except for on Sundays - continue #Tachycardia/CAD- Coronary artery calcification identified on chest imaging Jul 2024 so on rosuvastatin now; Echo Aug 2024 showed LV - Continue rosuvastatin Pt requesting d/c the rehab. Awaiting PT reassessment. This document was dictated utilizing [employer]. Please excuse any grammatical errors that may be secondary to use of this software. Admission and Anticipated Discharge Date Admission Date: March 03, 2025 Subjective Pt still having episodes of weakness and unsteady gait. Requesting rehab placement. Review of Systems Review of Systems: CONST: Negative for fever, body aches and chills. HENT: Negative for neck pain/stiffness, headache, congestion, sore throat, swelling. EYES: Negative for discharge/pain or vision changes. RESP: Negative for cough/hemoptysis and shortness of breath. CV: Negative chest pain, difficulty breathing, palpitations. ABD: Negative pain, nausea, vomiting. : Negative increase frequency, dysuria, blood in urine or stool. MUSC: Negative for muscle aches, edema. SKIN: Negative rash, lesions/sores. NEURO: Negative headache, dizziness, weakness. Physical Exam Physical Exam: GENERAL APPEARANCE NAD, activity normal for age, well developed/ well nourished, no cyanosis, pallor, or diaphoresis. EYES lids/conjunctiva normal. EARS/NOSE/THROAT Mucous membranes moist, nares normal, lips/teeth normal uvula midline without oral pharyngeal erythema, exudate or swelling TMs normal bilaterally. No lymphangitis/lymphedema. HEAD/NECK normocephalic atraumatic, no facial trauma, neck is supple. RESPIRATORY respiratory effort normal, speaks in full sentences, no tripod position, no accessory muscle use. Lungs clear to auscultation without rhonchi, wheezes, rales CARDIAC Regular rate and rhythm, no edema. ABDOMINAL Soft, ND/NT. No evidence of fluid wave. No pulsatile masses on exam, rebound tenderness, Mcadams sign or pain over Mcburney's point. MUSCLES/EXTREMITIES No abnormal range of motion, no swelling. SKIN Warm, pink and dry. No rashes, dermatoses, petechiae or lesions. NEUROLOGICAL Speech is clear and appropriate. Normal level of consciousness. Gait and coordination are normal. 5/5 strength in all extremities. PSYCH Normal mood and affect. Judgement/competence is appropriate Results & Data Results & Data Vital Signs (Past 12 Hours) Vital Signs Temp Pulse Resp BP Pulse Ox O2 Del Method 03/07/25 07:38 37.2 C 100 H 18 131/72 93 Room Air PG Care Time/CCT Total # of Minutes Spent Total Time Spent with Patient: Total time spent is greater than 50% in coordination of care (as documented) at patient's floor/unit and/or counseling patient: Coding Level of Care Code 39479 SUB INP/OBS CARE 2/35MIN Diagnoses Bilateral leg weakness R29.898 Lyme disease A69.20 Hyponatremia E87.1 Hyperglycemia due to type 2 diabetes mellitus E11.65
--- NOTE | 2025-03-07 12:34 | Pharmacy Report ---
Pharmacy Glycemic Short Note 2 - Date of Service March 07, 2025 - Glycemic Short BSG Results (Last 24 hours): 03/06/25 03/06/25 03/07/25 16:31 20:39 07:35 POC Glucose 106 H 103 H 72 03/07/25 11:34 POC Glucose 165 H OUTPATIENT ANTIDIABETIC REGIMEN: * n/A * a1C 8.3% 02/27/25 ASSESSMENT: 03/07 * Margy received a total of 10 units of insulin yesterday (all were basal) which is a significant decrease from the day before (total of 57 units on 03/05). Despite the decrease in insulin, BSGs were still mostly below goal yesterday 44-476-170-103mg/dL. * Fasting BSG was 72mg/dL this morning. The Lantus was discontinued and the NovoLog regimen with be continued without change. 03/04 * Patient admitted with b/l leg weakness. Hyperglycemia on admission. * Chronic steroid use, currently on 5 mg daily. * Fasting this AM 138 mg/dL- will scale lantus for PM * prandial BSG continues to be elevated today, will tighten carb ratio to weight stress/3. Prednisone will likely wears off throughout day PLAN FOR INPATIENT GLYCEMIC CONTROL: * Hold outpatient oral diabetes medications * Basal insulin * none * Bolus insulin * NovoLog per scale ACHS or Q6hrs while NPO * Goal Range: Low 110 mg/dL - High 140 mg/dL * Correction Factor: 30 mg/dL/unit * Nutritional / Prandial insulin per carb ratio of 1 unit per 9 grams CHO consumed
[2025-03-08] MEDS: LANTUS PER UNIT CHARGE SQ SCH ×2 (08:42→20:40)
--- NOTE | 2025-03-08 09:36 | Hospitalist Progress Note ---
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 -neurology consult appreciated -glucose control -PT/OT -MRI negative -responded well to solu-medrol 125mg given -pt with intermittent episodes of lightheadedness and unsteady gait -place on meclizine -does not feel safe to go home -PT now recommending rehab -awaiting placement (2) Lyme disease: Plan: -IgG + but IgM negative -likely chronic -currently on Rocephin, will change to doxycycline upon d/c (3) Hyponatremia: (4) Hyperglycemia due to type 2 diabetes mellitus: Plan: -RISS Plan 79-year-old female PMHx HTN, long-term steroid use secondary to PMR/OA, hypothyroidism, cardiomegaly, T2DM, dysplastic syndrome, prior compression fractures, history of seizure disorder, and tachycardia presenting for ongoing BLE weakness. ED evaluation reveals leukocytosis 14. 24, H&H 10.5/31.5, platelets 408; CMP sodium 132, BUN 25, ratio 42.1, glucose 471, repeat 450, lactate 1; bilirubin 1.4, AST 12; CK 35; troponin 11.5; TSH 1.946; UA negative for infection; CXR no acute findings.; Provided with 2L NSS, cefepime 2 g IV, and acetaminophen 1 g IV in ED. #PMR/OA/Chronic steroids- Prednisone 5mg daily - continue #Seizure disorder- Last seizure > 30 years ago; Lamotrigine - continue #Peripheral neuropathy- Gabapentin did not help, utilizing OTC gels #HTN- Lisinopril - continue #MDS- Follows with Dr. Valadez, most recent visit 08/17/2024 - Trend CBC #Hypothyroidism- TSH 1.946; Levothyroxine daily except for on Sundays - continue #Tachycardia/CAD- Coronary artery calcification identified on chest imaging Jul 2024 so on rosuvastatin now; Echo Aug 2024 showed LV - Continue rosuvastatin Pt requesting d/c the rehab. Awaiting PT reassessment. This document was dictated utilizing [employer]. Please excuse any grammatical errors that may be secondary to use of this software. Admission and Anticipated Discharge Date Admission Date: March 03, 2025 Subjective No events overnight. Pt resting in bed. Review of Systems Review of Systems: CONST: Negative for fever, body aches and chills. HENT: Negative for neck pain/stiffness, headache, congestion, sore throat, swelling. EYES: Negative for discharge/pain or vision changes. RESP: Negative for cough/hemoptysis and shortness of breath. CV: Negative chest pain, difficulty breathing, palpitations. ABD: Negative pain, nausea, vomiting. : Negative increase frequency, dysuria, blood in urine or stool. MUSC: Negative for muscle aches, edema. SKIN: Negative rash, lesions/sores. NEURO: Negative headache, dizziness, weakness. Physical Exam Physical Exam: GENERAL APPEARANCE NAD, activity normal for age, well developed/ well nourished, no cyanosis, pallor, or diaphoresis. EYES lids/conjunctiva normal. EARS/NOSE/THROAT Mucous membranes moist, nares normal, lips/teeth normal uvula midline without oral pharyngeal erythema, exudate or swelling TMs normal bilaterally. No lymphangitis/lymphedema. HEAD/NECK normocephalic atraumatic, no facial trauma, neck is supple. RESPIRATORY respiratory effort normal, speaks in full sentences, no tripod position, no accessory muscle use. Lungs clear to auscultation without rhonchi, wheezes, rales CARDIAC Regular rate and rhythm, no edema. ABDOMINAL Soft, ND/NT. No evidence of fluid wave. No pulsatile masses on exam, rebound tenderness, Mcadams sign or pain over Mcburney's point. MUSCLES/EXTREMITIES No abnormal range of motion, no swelling. SKIN Warm, pink and dry. No rashes, dermatoses, petechiae or lesions. NEUROLOGICAL Speech is clear and appropriate. Normal level of consciousness. Gait and coordination are normal. 5/5 strength in all extremities. PSYCH Normal mood and affect. Judgement/competence is appropriate Results & Data Results & Data Vital Signs (Past 12 Hours) Vital Signs Temp Pulse Resp BP Pulse Ox O2 Del Method 03/08/25 07:02 37.1 C 92 H 16 110/62 94 Room Air PG Care Time/CCT Total # of Minutes Spent Total Time Spent with Patient: Total time spent is greater than 50% in coordination of care (as documented) at patient's floor/unit and/or counseling patient: Coding Level of Care Code 61176 SUB INP/OBS CARE 2/35MIN Diagnoses Bilateral leg weakness R29.898 Lyme disease A69.20 Hyponatremia E87.1 Hyperglycemia due to type 2 diabetes mellitus E11.65
--- NOTE | 2025-03-08 12:29 | Pharmacy Report ---
Pharmacy Glycemic Short Note 2 - Date of Service March 08, 2025 - Glycemic Short BSG Results (Last 24 hours): 03/07/25 03/07/25 03/08/25 16:29 21:03 07:35 POC Glucose 117 H 141 H 184 H 03/08/25 11:26 POC Glucose 191 H OUTPATIENT ANTIDIABETIC REGIMEN: * n/A * a1C 8.3% 02/27/25 ASSESSMENT: 03/08 * Patient received total of 11 units of insulin yesterday, no basal * Fasting BSG trending up, reasonable to add low dose basal insulin back on. PO intake appears to have improved over last 24 hours 03/07 * Margy received a total of 10 units of insulin yesterday (all were basal) which is a significant decrease from the day before (total of 57 units on 03/05). Despite the decrease in insulin, BSGs were still mostly below goal yesterday [phone]/dL. * Fasting BSG was 72mg/dL this morning. The Lantus was discontinued and the NovoLog regimen with be continued without change. 03/04 * Patient admitted with b/l leg weakness. Hyperglycemia on admission. * Chronic steroid use, currently on 5 mg daily. * Fasting this AM 138 mg/dL- will scale lantus for PM * prandial BSG continues to be elevated today, will tighten carb ratio to weight stress/3. Prednisone will likely wears off throughout day PLAN FOR INPATIENT GLYCEMIC CONTROL: * Hold outpatient oral diabetes medications * Basal insulin * Lantus 5 units once daily in AM * Lantus 0-5 units HS * Bolus insulin * NovoLog per scale ACHS or Q6hrs while NPO * Goal Range: Low 110 mg/dL - High 140 mg/dL * Correction Factor: 30 mg/dL/unit * Nutritional / Prandial insulin per carb ratio of 1 unit per 9 grams CHO consumed
[2025-03-08] MEDS: GADOBUTROL 65ML VIAL IV ONE (16:44)
--- NOTE | 2025-03-08 17:17 | Magnetic Resonance Report ---
Clinical History: Headaches and dizziness Technique: Multiple T1 and T2-weighted magnetic resonance images were obtained of the brain both before and after the administration of 5.5 cc of Gadavist intravenous gadolinium contrast Comparison is made to the prior MRI dated 12/29/2024 Findings: There is no sign of acute or old infarction with normal-appearing diffusion weighted images. There is cerebral atrophy, within expected limits for the patient's age. There are focal and confluent areas of increased T2 signal intensity within the periventricular white matter of the cerebral hemispheres bilaterally. This is most likely due to chronic small vessel ischemic disease. No mass lesion or other area of abnormal enhancement is identified. There is no intracranial hemorrhage or other fluid collection. No midline shift or other form of herniation is seen. There is no hydrocephalus. The pituitary gland appears normal. Normal flow-voids are seen within the arteries of the [id number]. The orbits and paranasal sinuses appear normal. There is nasal septal deviation. The mastoid air cells appear clear Impression: 1. Cerebral atrophy and chronic small vessel ischemic disease 2. Otherwise unremarkable MRI of the brain Electronically signed by Gene Posey 03-08-2025 5:16 PM
--- NOTE | 2025-03-08 17:53 | Neurology Progress Note ---
Date of Service March 08, 2025 Assessment & Plan (1) GBS (Guillain [place] syndrome): Plan 79-year-old female with a history of borderline diabetes mellitus for the past few years, presenting with subacute, progressive, lower extremity weakness over the past 2-1/2 weeks following an upper respiratory infection. She has absent lower extremity deep tendon reflexes and profound sensory loss up to the knees. Although she may have an underlying diabetic peripheral neuropathy, her subacute progressive lower extremity weakness, associated loss of deep tendon reflexes and sensory loss following upper respiratory infection seems more consistent with Guillain-Blanchard syndrome. Brain MRI negative for acute process or findings suggestive of normal pressure hydrocephalus. 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 Howev er, MGUS associated neuropathy is typically insidious in onset and slowly progressive. Nonetheless, subacute variants are possible. Would recommend a lumbar puncture with fluoroscopy and radiology tomorrow. Would send standard CSF studies as well as cytology. Assess for albuminocytologic dissociation, if present, would recommend treatment with IVIG, 0.4 g/kg for 5 days. Would assess serum immunoglobulins to exclude IgA deficiency before treatment. Would also recommend serum free kappa chains, serum protein electrophoresis with immunofixation, ESR, and CRP. Outpatient EMG/nerve conduction study of the lower limbs, would typically need to wait 3 weeks after symptom onset. Please call with any questions. Admission and Anticipated Discharge Date Admission Date: March 03, 2025 Subjective New neurology assessment requested The patient is a 79-year-old female who presented to the emergency department March 03, 2025 complaining of lower extremity weakness. She informs me that her symptoms began about 2 weeks prior and were preceded by an upper respiratory in fection that had lasted for about 3 days, her was ill as well. Upon recovery from her infection, she developed difficulty with lower extremity weakness and had a few falls. She is unable to support her weight on her legs very well. She denies any significant low back pain or sciatica. No neck pain or headache. No fevers, chills, or rash currently. She has had an elevated hemoglobin A1c for the past few years, although typically in the low sixes, high fives. Her A1c was 8.3, however, on February 27, 2025. She does have a history of peripheral neuropathy and myelodysplastic syndrome. She informs me that prior to her current illness, she had been ambulating independently. A lumbar spine MRI completed March 04, 2025 was negative for any acute process, there were stable old lumbar body compression abnormalities, no significant central canal stenosis. Moderate right neuroforaminal narrowing at L4-5 noted. Moderate left and mild right neuroforaminal narrowing at L2-3, and stable moderate left, and mild right neuroforaminal narrowing at L1-2. A brain MRI completed this evening was negative for acute process. There is generalized atrophy and chronic small vessel ischemic disease. I did independently review these images. There is an element of ventriculomegaly although imaging not suggestive of normal pressure hydrocephalus. There is no significant focal cerebellar atrophy. Results & Data Vital Signs (Past 12 Hours) Vital Signs Temp Pulse Resp BP Pulse Ox O2 Del Method 03/08/25 15:39 37.5 C 100 H 16 133/69 91 Room Air 03/08/25 07:02 37.1 C 92 H 16 110/62 94 Room Air Exam (Neuro) Constitutional: well developed; no acute distress Eyes: normal visual corcoran by confrontation, PERRL and EOM intact bilaterally; no nystagmus Neurologic: Oriented to:: Person, Place and Time Memory: Short Term Intact and Remote Intact Attention: Span Intact and Concentration Intact Speech Fluency: negative Dysarthria or Dysfluency Speech Aphasia: negative Aphasia Fund of Knowledge: Current Events, Past History and Vocabulary Cranial Nerves: Normal II, III, IV, , V, VII, VIII, IX, X, XI and XII Motor Strength: Normal Lower Extremities and Normal Upper Extremities Motor Tone: Normal Lower Extremities and Normal Upper Extremities Muscle Bulk/Involuntary Movements: No Involuntary Movements; negative Muscle Atrophy Sensation: negative Light Touch Intact, Pain/Temperature Intact or Vibration Intact Coordination: Limited Balance and Heel-Still Abnormal; negative Dysdiadochokinesia or Finger-Nose Abnormal Deep Tendon Reflexes: Rt Triceps: 1+, Lt Triceps: 1+, Rt Biceps: 1+, Lt Biceps: 1+, Rt Brachioradialis: 1+, Lt Brachioradialis: 1+, Rt Patellar: 0, Lt Patellar: 0, Rt Ankle: 0 and Lt Ankle: 0 Special Tests: negative Babinski Present Details: Patient was able to stand up on her own at bedside. Was able to take 2 steps, very unsteady. Coding Level of Care Code 54785 SUB INP/OBS CARE 3/50MIN Diagnoses GBS (Guillain [place] syndrome) G61.0 Time Spent (min) 60 Comment Total time includes patient contact, chart review, counseling, note preparation
[2025-03-08 23:07] LABS: Q Fever IgG, Phase I NEGATIVE
--- NOTE | 2025-03-09 11:26 | Hospitalist Progress Note ---
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 -neurology consult appreciated -glucose control -PT/OT -MRI negative -responded well to solu-medrol 125mg given -pt with intermittent episodes of lightheadedness and unsteady gait -place on meclizine - continued and progressive LE muscle weakness - MRI brain negative - neurology reconsult appreciated - R/O GBS - LP ordered (2) Lyme disease: Plan: -IgG + but IgM negative -likely chronic -currently on Rocephin, will change to doxycycline upon d/c (3) Hyponatremia: (4) Hyperglycemia due to type 2 diabetes mellitus: Plan: -RISS Plan 79-year-old female PMHx HTN, long-term steroid use secondary to PMR/OA, hypothyroidism, cardiomegaly, T2DM, dysplastic syndrome, prior compression fra ctures, history of seizure disorder, and tachycardia presenting for ongoing BLE weakness. ED evaluation reveals leukocytosis 14. 24, H&H 10.5/31.5, platelets 408; CMP sodium 132, BUN 25, ratio 42.1, glucose 471, repeat 450, lactate 1; bilirubin 1.4, AST 12; CK 35; troponin 11.5; TSH 1.946; UA negative for infection; CXR no acute findings.; Provided with 2L NSS, cefepime 2 g IV, and acetaminophen 1 g IV in ED. #PMR/OA/Chronic steroids- Prednisone 5mg daily - continue #Seizure disorder- Last seizure > 30 years ago; Lamotrigine - continue #Peripheral neuropathy- Gabapentin did not help, utilizing OTC gels #HTN- Lisinopril - continue #MDS- Follows with Dr. Valadez, most recent visit 08/17/2024 - Trend CBC #Hypothyroidism- TSH 1.946; Levothyroxine daily except for on Sundays - continue #Tachycardia/CAD- Coronary artery calcification identified on chest imaging Jul 2024 so on rosuvastatin now; Echo Aug 2024 showed LV - Continue rosuvastatin Pt requesting d/c the rehab. Awaiting PT reassessment. This document was dictated utilizing [employer]. Please excuse any grammatical errors that may be secondary to use of this software. Admission and Anticipated Discharge Date Admission Date: March 03, 2025 Subjective No events overnight. Pt resting comfortably in bed. Review of Systems Review of Systems: CONST: Negative for fever, body aches and chills. HENT: Negative for neck pain/stiffness, headache, congestion, sore throat, swelling. EYES: Negative for discharge/pain or vision changes. RESP: Negative for cough/hemoptysis and shortness of breath. CV: Negative chest pain, difficulty breathing, palpitations. ABD: Negative pain, nausea, vomiting. : Negative increase frequency, dysuria, blood in urine or stool. MUSC: Negative for muscle aches, edema. SKIN: Negative rash, lesions/sores. NEURO: Negative headache, dizziness, weakness. Physical Exam Physical Exam: GENERAL APPEARANCE NAD, activity normal for age, well developed/ well nourished, no cyanosis, pallor, or diaphoresis. EYES lids/conjunctiva normal. EARS/NOSE/THROAT Mucous membranes moist, nares normal, lips/teeth normal uvula midline without oral pharyngeal erythema, exudate or swelling TMs normal bilaterally. No lymphangitis/lymphedema. HEAD/NECK normocephalic atraumatic, no facial trauma, neck is supple. RESPIRATORY respiratory effort normal, speaks in full sentences, no tripod position, no accessory muscle use. Lungs clear to auscultation without rhonchi, wheezes, rales CARDIAC Regular rate and rhythm, no edema. ABDOMINAL Soft, ND/NT. No evidence of fluid wave. No pulsatile masses on exam, rebound tenderness, Mcadams sign or pain over Mcburney's point. MUSCLES/EXTREMITIES No abnormal range of motion, no swelling. SKIN Warm, pink and dry. No rashes, dermatoses, petechiae or lesions. NEUROLOGICAL Speech is clear and appropriate. Normal level of consciousness. Gait and coordination are normal. 5/5 strength in all extremities. PSYCH Normal mood and affect. Judgement/competence is appropriate Results & Data Results & Data Vital Signs (Past 12 Hours) Vital Signs Temp Pulse Resp BP Pulse Ox O2 Del Method 03/09/25 07:14 37.6 C H 93 H 16 120/64 93 Room Air PG Care Time/CCT Total # of Minutes Spent Total Time Spent with Patient: Total time spent is greater than 50% in coordination of care (as documented) at patient's floor/unit and/or counseling patient: Coding Level of Care Code 90451 SUB INP/OBS CARE 2/35MIN Diagnoses Bilateral leg weakness R29.898 Lyme disease A69.20 Hyponatremia E87.1 Hyperglycemia due to type 2 diabetes mellitus E11.65
[2025-03-09 12:17] LABS: CSF Count Tube # 3; CSF Xanthrochromic No xanthochromia; Red Blood Cell CSF Manual 0 (0); White Blood Cell CSF Manual 0 (0-5)
--- NOTE | 2025-03-09 14:00 | Fluoroscopy Report ---
LUMBAR PUNCTURE UNDER FLUOROSCOPY CLINICAL HISTORY: GBS PROCEDURE: Procedure and risks were explained. Informed consent was obtained. A final timeout was com pleted. The patient was placed prone on the fluoroscopic exam table. The lower lumbar region was prep ped and draped in sterile fashion. 1% lidocaine was utilized for skin anesthesia. Utilizing fluoroscopic guidance, a 22-gauge Sprotte spinal needle was advanced into the intrathecal s pace at the L2-3 disc space level. Fluoroscopic spot images were obtained. 8 mL of clear CSF fluid wa s removed and sent to lab for analysis. The needle was removed and Band-Aid applied. The patient tole rated the procedure well. Vital signs will be monitored postprocedure. Fluoroscopy time 22 seconds. Study dosed is 1.88 mGy. IMPRESSION: Lumbar puncture as above. Performed, dictated, and signed by Addy Lomax PA-C; to be co-signed by Dr. Roberto Cantrell. Electronically signed by: Roberto Cantrell M.D. 03/09/2025 3:57 PM
[2025-03-09] MEDS ORDERED: IMMUNE GLOBULIN (HUMAN) SOLN IV ONE (16:27)
[2025-03-09] MEDS: Octagam 10% IVIG 5 gram bottle IV SCH (17:39)
[2025-03-09] MEDS: Octagam 10% IVIG 20 gram bottle IV SCH (20:04)
[2025-03-10] MEDS: LANTUS PER UNIT CHARGE SQ SCH (08:36)
--- NOTE | 2025-03-10 09:21 | Pharmacy Report ---
Pharmacy Glycemic Short Note 2 - Date of Service March 10, 2025 - Glycemic Short BSG Results (Last 24 hours): 03/09/25 03/09/25 03/09/25 12:22 12:33 16:25 Glucose 164 H POC Glucose 160 H 192 H 03/09/25 03/10/25 20:26 07:48 Glucose POC Glucose 209 H 177 H OUTPATIENT ANTIDIABETIC REGIMEN: * n/A * a1C 8.3% 02/27/25 ASSESSMENT: 03/10/25: * IVIG initiated for Guillain [place] syndrome, LP performed yesterday * Blood sugars trended up throughout the day yesterday (149 - 160 - 192 - 209 mg/dL) w/ elevated fasting this morning (177 mg/dL) * Remains on prednisone 5 mg PO daily 03/08 * Patient received total of 11 units of insulin yesterday, no basal * Fasting BSG trending up, reasonable to add low dose basal insulin back on. PO intake appears to have improved over last 24 hours 03/07 * Margy received a total of 10 units of insulin yesterday (all were basal) which is a significant decrease from the day before (total of 57 units on 03/05). Despite the decrease in insulin, BSGs were still mostly below goal yesterday [phone]/dL. * Fasting BSG was 72mg/dL this morning. The Lantus was discontinued and the NovoLog regimen with be continued without change. 03/04 * Patient admitted with b/l leg weakness. Hyperglycemia on admission. * Chronic steroid use, currently on 5 mg daily. * Fasting this AM 138 mg/dL- will scale lantus for PM * prandial BSG continues to be elevated today, will tighten carb ratio to weight stress/3. Prednisone will likely wears off throughout day PLAN FOR INPATIENT GLYCEMIC CONTROL: * Hold outpatient oral diabetes medications * Basal insulin - increase * Lantus 8 units once daily in AM * Lantus 0-4-8 units SC HS (see EHR for details) * Bolus insulin - tighten carb ratio * NovoLog per scale ACHS or Q6hrs while NPO * Goal Range: Low 120 mg/dL - High 160 mg/dL * Correction Factor: 30 mg/dL/unit * Nutritional / Prandial insulin per carb ratio of 1 unit per 8 grams CHO consumed
--- NOTE | 2025-03-10 09:36 | Hospitalist Progress Note ---
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 -neurology consult appreciated -glucose control -PT/OT -MRI negative -responded well to solu-medrol 125mg given -pt with intermittent episodes of lightheadedness and unsteady gait -place on meclizine - continued and progressive LE muscle weakness - MRI brain negative - neurology reconsult appreciated - R/O GBS - LP ordered - CSF showing glucose 89, protein mild elevation - neurology recommending starting IVIG, ordered (2) Lyme disease: Plan: -IgG + but IgM negative -likely chronic -currently on Rocephin, will change to doxycycline upon d/c (3) Hyponatremia: (4) Hyperglycemia due to type 2 diabetes mellitus: Plan: -RISS Plan 79-year-old female PMHx HTN, long-term steroid use secondary to PMR/OA, hypothyroidism, cardiomegaly, T2DM, dysplastic syndrome, prior compression fractures, history of seizure disorder, and tachycardia presenting for ongoing BLE weakness. ED evaluation reveals leukocytosis 14. 24, H&H 10.5/31.5, platelets 408; CMP sodium 132, BUN 25, ratio 42.1, glucose 471, repeat 450, lactate 1; bilirubin 1.4, AST 12; CK 35; troponin 11.5; TSH 1.946; UA negative for infection; CXR no acute findings.; Provided with 2L NSS, cefepime 2 g IV, and acetaminophen 1 g IV in ED. #PMR/OA/Chronic steroids- Prednisone 5mg daily - continue #Seizure disorder- Last seizure > 30 years ago; Lamotrigine - continue #Peripheral neuropathy- Gabapentin did not help, utilizing OTC gels #HTN- Lisinopril - continue #MDS- Follows with Dr. Valadez, most recent visit 08/17/2024 - Trend CBC #Hypothyroidism- TSH 1.946; Levothyroxine daily except for on Sundays - continue #Tachycardia/CAD- Coronary artery calcification identified on chest imaging Jul 2024 so on rosuvastatin now; Echo Aug 2024 showed LV - Continue rosuvastatin Pt requesting d/c the rehab This document was dictated utilizing [employer]. Please excuse any grammatical errors that may be secondary to use of this software. Admission and Anticipated Discharge Date Admission Date: March 03, 2025 Subjective No events overnight. Pt resting comfortably eating breakfast. Still with muscle weakness requiring assist with transfers. Review of Systems Review of Systems: CONST: Negative for fever, body aches and chills. HENT: Negative for neck pain/stiffness, headache, congestion, sore throat, swelling. EYES: Negative for discharge/pain or vision changes. RESP: Negative for cough/hemoptysis and shortness of breath. CV: Negative chest pain, difficulty breathing, palpitations. ABD: Negative pain, nausea, vomiting. : Negative increase frequency, dysuria, blood in urine or stool. MUSC: Negative for muscle aches, edema. SKIN: Negative rash, lesions/sores. NEURO: Negative headache, dizziness, weakness. Physical Exam Physical Exam: GENERAL APPEARANCE NAD, activity normal for age, well developed/ well nourished, no cyanosis, pallor, or diaphoresis. EYES lids/conjunctiva normal. EARS/NOSE/THROAT Mucous membranes moist, nares normal, lips/teeth normal uvula midline without oral pharyngeal erythema, exudate or swelling TMs normal bilaterally. No lymphangitis/lymphedema. HEAD/NECK normocephalic atraumatic, no facial trauma, neck is supple. RESPIRATORY respiratory effort normal, speaks in full sentences, no tripod position, no accessory muscle use. Lungs clear to auscultation without rhonchi, wheezes, rales CARDIAC Regular rate and rhythm, no edema. ABDOMINAL Soft, ND/NT. No evidence of fluid wave. No pulsatile masses on exam, rebound tenderness, Mcadams sign or pain over Mcburney's point. MUSCLES/EXTREMITIES No abnormal range of motion, no swelling. SKIN Warm, pink and dry. No rashes, dermatoses, petechiae or lesions. NEUROLOGICAL Speech is clear and appropriate. Normal level of consciousness. Gait and coordination are normal. 5/5 strength in all extremities. PSYCH Normal mood and affect. Judgement/competence is appropriate Results & Data Results & Data Vital Signs (Past 12 Hours) Vital Signs Temp Pulse Resp BP Pulse Ox O2 Del Method 03/10/25 07:53 37.2 C 98 H 16 116/67 91 Room Air PG Care Time/CCT Total # of Minutes Spent Total Time Spent with Patient: Total time spent is greater than 50% in coordination of care (as documented) at patient's floor/unit and/or counseling patient: Coding Level of Care Code 54389 SUB INP/OBS CARE 235MIN Diagnoses Bilateral leg weakness R29.898 Lyme disease A69.20 Hyponatremia E87.1 Hyperglycemia due to type 2 diabetes mellitus E11.65
--- NOTE | 2025-03-11 10:52 | Hospitalist Progress Note ---
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 -neurology consult appreciated -glucose control -PT/OT -MRI negative -responded well to solu-medrol 125mg given -pt with intermittent episodes of lightheadedness and unsteady gait -place on meclizine - continued and progressive LE muscle weakness - MRI brain negative - neurology reconsult appreciated - R/O GBS - LP ordered - CSF showing glucose 89, protein mild elevation - neurology recommending starting IVIG, ordered - pt completed 2/5 doses of IVIG, clinically improving (2) Lyme disease: Plan: -IgG + but IgM negative -likely chronic -currently on Rocephin, will change to doxycycline upon d/c (3) Hyponatremia: (4) Hyperglycemia due to type 2 diabetes mellitus: Plan: -RISS Plan 79-year-old female PMHx HTN, long-term steroid use secondary to PMR/OA, hypothyroidism, cardiomegaly, T2DM, dysplastic syndrome, prior compression fractures, history of seizure disorder, and tachycardia presenting for ongoing BLE weakness. ED evaluation reveals leukocytosis 14. 24, H&H 10.5/31.5, platelets 408; CMP sodium 132, BUN 25, ratio 42.1, glucose 471, repeat 450, lactate 1; bilirubin 1.4, AST 12; CK 35; troponin 11.5; TSH 1.946; UA negative for infection; CXR no acute findings.; Provided with 2L NSS, cefepime 2 g IV, and acetaminophen 1 g IV in ED. #PMR/OA/Chronic steroids- Prednisone 5mg daily - continue #Seizure disorder- Last seizure > 30 years ago; Lamotrigine - continue #Peripheral neuropathy- Gabapentin did not help, utilizing OTC gels #HTN- Lisinopril - continue #MDS- Follows with Dr. Valadez, most recent visit 08/17/2024 - Trend CBC #Hypothyroidism- TSH 1.946; Levothyroxine daily except for on Sundays - continue #Tachycardia/CAD- Coronary artery calcification identified on chest imaging Jul 2024 so on rosuvastatin now; Echo Aug 2024 showed LV - Continue rosuvastatin Pt requesting d/c the rehab Admission and Anticipated Discharge Date Admission Date: March 03, 2025 Subjective Pt feeling better today. Completed 2 doses of IVIG. Review of Systems Review of Systems: CONST: Negative for fever, body aches and chills. HENT: Negative for neck pain/stiffness, headache, congestion, sore throat, swelling. EYES: Negative for discharge/pain or vision changes. RESP: Negative for cough/hemoptysis and shortness of breath. CV: Negative chest pain, difficulty breathing, palpitations. ABD: Negative pain, nausea, vomiting. : Negative increase frequency, dysuria, blood in urine or stool. MUSC: Negative for muscle aches, edema. SKIN: Negative rash, lesions/sores. NEURO: Negative headache, dizziness, weakness. Physical Exam Physical Exam: GENERAL APPEARANCE NAD, activity normal for age, well developed/ well nourished, no cyanosis, pallor, or diaphoresis. EYES lids/conjunctiva normal. EARS/NOSE/THROAT Mucous membranes moist, nares normal, lips/teeth normal uvula midline without oral pharyngeal erythema, exudate or swelling TMs normal bilaterally. No lymphangitis/lymphedema. HEAD/NECK normocephalic atraumatic, no facial trauma, neck is supple. RESPIRATORY respiratory effort normal, speaks in full sentences, no tripod position, no accessory muscle use. Lungs clear to auscultation without rhonchi, wheezes, rales CARDIAC Regular rate and rhythm, no edema. ABDOMINAL Soft, ND/NT. No evidence of fluid wave. No pulsatile masses on exam, rebound tenderness, Mcadams sign or pain over Mcburney's point. MUSCLES/EXTREMITIES No abnormal range of motion, no swelling. SKIN Warm, pink and dry. No rashes, dermatoses, petechiae or lesions. NEUROLOGICAL Speech is clear and appropriate. Normal level of consciousness. Gait and coordination are normal. 5/5 strength in all extremities. PSYCH Normal mood and affect. Judgement/competence is appropriate Results & Data Results & Data Vital Signs (Past 12 Hours) Vital Signs Temp Pulse Resp BP Pulse Ox O2 Del Method O2 Flow Rate 03/11/25 07:06 37.2 C 95 H 18 117/61 95 Nasal Cannula 2 03/11/25 06:06 98 Nasal Cannula 2 03/11/25 06:04 102 H 128/66 88 L Room Air PG Care Time/CCT Total # of Minutes Spent Total Time Spent with Patient: Total time spent is greater than 50% in coordination of care (as documented) at patient's floor/unit and/or counseling patient: Coding Level of Care Code 47717 SUB INP/OBS CARE 235MIN Diagnoses Bilateral leg weakness R29.898 Lyme disease A69.20 Hyponatremia E87.1 Hyperglycemia due to type 2 diabetes mellitus E11.65
--- NOTE | 2025-03-11 10:56 | Neurology Progress Note ---
Date of Service March 11, 2025 Assessment & Plan (1) GBS (Guillain Victoria syndrome): (2) Myelodysplastic syndrome: (3) Type 2 diabetes mellitus: Plan 79-year-old female with a history of borderline diabetes mellitus for several years, worsening blood glucose control recently, however. History also notable for myelodysplastic syndrome. She presented with subacute lower extremity weakness, areflexia, following an upper respiratory infection. 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 CSF analysis revealed mild albuminocytologic dissociation. She has been receiving IVIG and reports modest improvement in her lower extremity strength with greater ability to stand and ambulate with assistance. Her lower extremity strength and reflexes are slightly improved. Continue with IVIG per protocol. Plan for outpatient EMG/nerve conduction study of the lower limbs as an outpatient. Continue supportive medical care. 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 Denies significant pain or sensory loss. No double vision, dysarthria, or dysphagia. No myalgia. No significant headache, neck, back or spinal pain. Results & Data Vital Signs (Past 12 Hours) Vital Signs Temp Pulse Resp BP Pulse Ox O2 Del Method O2 Flow Rate 03/11/25 07:06 37.2 C 95 H 18 117/61 95 Nasal Cannula 2 03/11/25 06:06 98 Nasal Cannula 2 03/11/25 06:04 102 H 128/66 88 L Room Air Laboratory Results ESR greater than 130, CRP 17.42, CK 35, hemoglobin A1c from February 27 was 8.3, vitamin B12 greater than 1500, vitamin D42.9, TSH 1.946, CSF total protein 48.3, mildly elevated, CSF cell count 0, CSF glucose 89, Lyme screen was positive Lyme IgG antibodies positive, IgM antibodies negative Exam (Neuro) Constitutional: well developed; no acute distress Eyes: normal visual corcoran by confrontation, PERRL and EOM intact bilaterally; no nystagmus Neurologic: Oriented to:: Person, Place and Time Memory: Short Term Intact and Remote Intact Attention: Span Intact and Concentration Intact Speech Fluency: negative Dysarthria or Dysfluency Speech Aphasia: negative Aphasia Fund of Knowledge: Current Events, Past History and Vocabulary Cranial Nerves: Normal II, III, IV, , V, VII, VIII, IX, X, XI and XII Motor Strength: Normal Upper Extremities; negative Normal Lower Extremities Motor Tone: Normal Lower Extremities and Normal Upper Extremities Muscle Bulk/Involuntary Movements: No Involuntary Movements; negative Muscle Atrophy Sensation: Light Touch Intact, Pain/Temperature Intact and Vibration Intact Coordination: negative Finger-Nose Abnormal or Heel-Still Abnormal Deep Tendon Reflexes: Rt Triceps: 2+, Lt Triceps: 2+, Rt Biceps: 2+, Lt Biceps: 2+, Rt Brachioradialis: 2+, Lt Brachioradialis: 2+, Rt Patellar: 1+, Lt Patellar: 1+, Rt Ankle: 0 and Lt Ankle: 0 Details: Mild weakness for ankle dorsiflexion and hip flexion bilaterally Coding Level of Care Code 40951 SUB INP/OBS CARE 235MIN Diagnoses GBS (Guillain Victoria syndrome) G61.0 Myelodysplastic syndrome D46.9 Type 2 diabetes mellitus without complication, without long-term current use of insulin E11.9 Diabetes 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
[2025-03-11] MEDS: ONDANSETRON INJ 2 MG/ML 2 ML VIAL IV PRN (11:48)
--- NOTE | 2025-03-12 10:23 | Hospitalist Progress Note ---
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 -neurology consult appreciated -glucose control -PT/OT -MRI negative -responded well to solu-medrol 125mg given -pt with intermittent episodes of lightheadedness and unsteady gait -place on meclizine - continued and progressive LE muscle weakness - MRI brain negative - neurology reconsult appreciated - R/O GBS - LP ordered - CSF showing glucose 89, protein mild elevation - neurology recommending starting IVIG, ordered - pt completed 3/5 doses of IVIG, clinically improving (2) Lyme disease: Plan: -IgG + but IgM negative -likely chronic -currently on Rocephin, will change to doxycycline upon d/c (3) Hyponatremia: (4) Hyperglycemia due to type 2 diabetes mellitus: Plan: -RISS Plan 79-year-old female PMHx HTN, long-term steroid use secondary to PMR/OA, hypothyroidism, cardiomegaly, T2DM, dysplastic syndrome, prior compression fractures, history of seizure disorder, and tachycardia presenting for ongoing BLE weakness. ED evaluation reveals leukocytosis 14. 24, H&H 10.5/31.5, platelets 408; CMP sodium 132, BUN 25, ratio 42.1, glucose 471, repeat 450, lactate 1; bilirubin 1.4, AST 12; CK 35; troponin 11.5; TSH 1.946; UA negative for infection; CXR no acute findings.; Provided with 2L NSS, cefepime 2 g IV, and acetaminophen 1 g IV in ED. #PMR/OA/Chronic steroids- Prednisone 5mg daily - continue #Seizure disorder- Last seizure > 30 years ago; Lamotrigine - continue #Peripheral neuropathy- Gabapentin did not help, utilizing OTC gels #HTN- Lisinopril - continue #MDS- Follows with Dr. Valadez, most recent visit 08/17/2024 - Trend CBC #Hypothyroidism- TSH 1.946; Levothyroxine daily except for on Sundays - continue #Tachycardia/CAD- Coronary artery calcification identified on chest imaging Jul 2024 so on rosuvastatin now; Echo Aug 2024 showed LV - Continue rosuvastatin Pt requesting d/c the rehab Admission and Anticipated Discharge Date Admission Date: March 03, 2025 Subjective No events overnight. Pt resting in bed. She is having gradual improvement in symptoms. Still with inability to stay in chair, due to muscle fatigue. Review of Systems Review of Systems: CONST: Negative for fever, body aches and chills. HENT: Negative for neck pain/stiffness, headache, congestion, sore throat, swelling. EYES: Negative for discharge/pain or vision changes. RESP: Negative for cough/hemoptysis and shortness of breath. CV: Negative chest pain, difficulty breathing, palpitations. ABD: Negative pain, nausea, vomiting. : Negative increase frequency, dysuria, blood in urine or stool. MUSC: Negative for muscle aches, edema. SKIN: Negative rash, lesions/sores. NEURO: Negative headache, dizziness, weakness. Physical Exam Physical Exam: GENERAL APPEARANCE NAD, activity normal for age, well developed/ well nourished, no cyanosis, pallor, or diaphoresis. EYES lids/conjunctiva normal. EARS/NOSE/THROAT Mucous membranes moist, nares normal, lips/teeth normal uvula midline without oral pharyngeal erythema, exudate or swelling TMs normal bilaterally. No lymphangitis/lymphedema. HEAD/NECK normocephalic atraumatic, no facial trauma, neck is supple. RESPIRATORY respiratory effort normal, speaks in full sentences, no tripod position, no accessory muscle use. Lungs clear to auscultation without rhonchi, wheezes, rales CARDIAC Regular rate and rhythm, no edema. ABDOMINAL Soft, ND/NT. No evidence of fluid wave. No pulsatile masses on exam, rebound tenderness, Mcadams sign or pain over Mcburney's point. MUSCLES/EXTREMITIES No abnormal range of motion, no swelling. SKIN Warm, pink and dry. No rashes, dermatoses, petechiae or lesions. NEUROLOGICAL Speech is clear and appropriate. Normal level of consciousness. Gait and coordination are normal. 5/5 strength in all extremities. PSYCH Normal mood and affect. Judgement/competence is appropriate Results & Data Results & Data Vital Signs (Past 12 Hours) Vital Signs Temp Pulse Resp BP Pulse Ox O2 Del Method O2 Flow Rate 03/12/25 09:46 Nasal Cannula 2 03/12/25 07:28 37.5 C 92 H 16 136/70 93 Nasal Cannula 2 PG Care Time/CCT Total # of Minutes Spent Total Time Spent with Patient: Total time spent is greater than 50% in coordination of care (as documented) at patient's floor/unit and/or counseling patient: Coding Level of Care Code 51073 SUB INP/OBS CARE 235MIN Diagnoses Bilateral leg weakness R29.898 Lyme disease A69.20 Hyponatremia E87.1 Hyperglycemia due to type 2 diabetes mellitus E11.65
[2025-03-13 07:04] LABS: Appearance Urine Clear (Clear); Bacteria Urine Automated None Seen (None Seen); Cast Urine Automated 0-2 /lpf (0-2); Epithelial Cell Urine Auto 0-2 /hpf (0-2); Glucose Urine UA 2+ (Negative); RBC Urine Automated 0-2 /hpf (0-2); WBC Urine Automated 0-5 /hpf (0-5)
[2025-03-13 08:02] LABS: Hematocrit (blood only) 23.2 % (37.0-47.0); Hemoglobin 7.7 g/dl (12.0-16.0); Mean Corpuscular Hemoglobin 32.9 pg (25.0-34.0); Mean Corpuscular Volume 99.1 fL (80.0-100.0); Platelet Count 458 K/uL (130-400); RDW Standard Deviation 81.7 fL (36.4-46.3); Red Blood Count 2.34 M/uL (4.20-5.40); White Blood Count 5.35 K/ul (4.8-10.8)
[2025-03-13 08:19] LABS: Anion Gap 4.0 (3-11); Blood Urea Nitrogen 18.0 mg/dl (6-23); Calcium 8.5 mg/dl (8.6-10.3); Carbon Dioxide 31.0 mmol/L (21-32); Chloride 99.0 mmol/L (98-107); Creatinine Clr Calc Pharmacy 69.4 ml/min; Glucose 122.0 mg/dl (70-99(Fasting)); Potassium 3.6 mmol/L (3.5-5.1); Sodium 134.0 mmol/L (136-145)
--- NOTE | 2025-03-13 09:36 | Hospitalist Progress Note ---
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 -neurology consult appreciated -glucose control -PT/OT -MRI negative -responded well to solu-medrol 125mg given -pt with intermittent episodes of lightheadedness and unsteady gait -place on meclizine - continued and progressive LE muscle weakness - MRI brain negative - neurology reconsult appreciated - R/O GBS - LP ordered - CSF showing glucose 89, protein mild elevation - neurology recommending starting IVIG, ordered - pt completed 4/5 doses of IVIG - pt with confusion this am f/u CT head (2) Lyme disease: Plan: -IgG + but IgM negative -likely chronic -currently on Rocephin, will change to doxycycline upon d/c (3) Hyponatremia: (4) Hyperglycemia due to type 2 diabetes mellitus: Plan: -RISS Plan 79-year-old female PMHx HTN, long-term steroid use secondary to PMR/OA, hypothyroidism, cardiomegaly, T2DM, dysplastic syndrome, prior compression fractures, history of seizure disorder, and tachycardia presenting for ongoing BLE weakness. ED evaluation reveals leukocytosis 14. 24, H&H 10.5/31.5, platelets 408; CMP sodium 132, BUN 25, ratio 42.1, glucose 471, repeat 450, lact ate 1; bilirubin 1.4, AST 12; CK 35; troponin 11.5; TSH 1.946; UA negative for infection; CXR no acute findings.; Provided with 2L NSS, cefepime 2 g IV, and acetaminophen 1 g IV in ED. #PMR/OA/Chronic steroids- Prednisone 5mg daily - continue #Seizure disorder- Last seizure > 30 years ago; Lamotrigine - continue #Peripheral neuropathy- Gabapentin did not help, utilizing OTC gels #HTN- Lisinopril - continue #MDS- Follows with Dr. Valadez, most recent visit 08/17/2024 - Trend CBC #Hypothyroidism- TSH 1.946; Levothyroxine daily except for on Sundays - continue #Tachycardia/CAD- Coronary artery calcification identified on chest imaging Jul 2024 so on rosuvastatin now; Echo Aug 2024 showed LV - Continue rosuvastatin Pt requesting d/c the rehab Admission and Anticipated Discharge Date Admission Date: March 03, 2025 Subjective Pt with AMS this am, appears more confused. Review of Systems Review of Systems: CONST: Negative for fever, body aches and chills. HENT: Negative for neck pain/stiffness, headache, congestion, sore throat, swelling. EYES: Negative for discharge/pain or vision changes. RESP: Negative for cough/hemoptysis and shortness of breath. CV: Negative chest pain, difficulty breathing, palpitations. ABD: Negative pain, nausea, vomiting. : Negative increase frequency, dysuria, blood in urine or stool. MUSC: Negative for muscle aches, edema. SKIN: Negative rash, lesions/sores. NEURO: Negative headache, dizziness, weakness. Physical Exam Physical Exam: GENERAL APPEARANCE NAD, activity normal for age, well developed/ well nourished, no cyanosis, pallor, or diaphoresis. EYES lids/conjunctiva normal. EARS/NOSE/THROAT Mucous membranes moist, nares normal, lips/teeth normal uvula midline without oral pharyngeal erythema, exudate or swelling TMs normal bilaterally. No lymphangitis/lymphedema. HEAD/NECK normocephalic atraumatic, no facial trauma, neck is supple. RESPIRATORY respiratory effort normal, speaks in full sentences, no tripod position, no accessory muscle use. Lungs clear to auscultation without rhonchi, wheezes, rales CARDIAC Regular rate and rhythm, no edema. ABDOMINAL Soft, ND/NT. No evidence of fluid wave. No pulsatile masses on exam, rebound tenderness, Mcadams sign or pain over Mcburney's point. MUSCLES/EXTREMITIES No abnormal range of motion, no swelling. SKIN Warm, pink and dry. No rashes, dermatoses, petechiae or lesions. NEUROLOGICAL Speech is clear and appropriate. Normal level of consciousness. Gait and coordination are normal. 5/5 strength in all extremities. PSYCH Normal mood and affect. Judgement/competence is appropriate Results & Data Results & Data Vital Signs (Past 12 Hours) Vital Signs Temp Pulse Resp BP Pulse Ox O2 Del Method O2 Flow Rate 03/13/25 07:25 37.2 C 72 18 113/52 L 95 Nasal Cannula 2 03/13/25 07:22 Nasal Cannula 2 PG Care Time/CCT Total # of Minutes Spent Total Time Spent with Patient: Total time spent is greater than 50% in coordination of care (as documented) at patient's floor/unit and/or counseling patient: Coding Level of Care Code 90046 SUB INP/OBS CARE 235MIN Diagnoses Bilateral leg weakness R29.898 Lyme disease A69.20 Hyponatremia E87.1 Hyperglycemia due to type 2 diabetes mellitus E11.65
--- NOTE | 2025-03-13 10:25 | CT Scan Report ---
CT head/brain wo con CLINICAL HISTORY: 79 years-old Female with AMS. Acutely altered mental status TECHNIQUE: Multiple axial CT images of the head were obtained without contrast. A dose lowering tech nique was utilized adhering to the principles of ALARA. CT DOSE: 625.8 mGy.cm COMPARISON: Brain MRI 03/08/2025 FINDINGS: No acute intracranial hemorrhage, midline shift, intracranial mass, hydrocephalus, territorial ischem ia or abnormal extra-axial collection. Involutional changes with suggestion of mild chronic microvasc ular ischemic disease. Partially empty sella. The calvarium is intact. The paranasal sinuses, mastoid air cells, and middle ear cavities are clear . IMPRESSION: No acute intracranial abnormality. ACT 112: Negative or not required by law. The above report was generated using voice recognition software. It may contain grammatical, syntax o r spelling errors. Electronically signed by: Darryl Crandall M.D. 03/13/2025 10:22 AM
--- NOTE | 2025-03-13 11:39 | Pharmacy Report ---
Pharmacy Glycemic Short Note 2 - Date of Service March 13, 2025 - Glycemic Short BSG Results (Last 24 hours): 03/12/25 03/12/25 03/13/25 16:39 20:34 07:26 Glucose POC Glucose 159 H 194 H 130 H 03/13/25 03/13/25 07:41 11:23 Glucose 122 H POC Glucose 107 H OUTPATIENT ANTIDIABETIC REGIMEN: * n/A * a1C 8.3% 02/27/25 ASSESSMENT: 03/13 * Margy received a total of 19 units of insulin yesterday (12 units were basal and 7 units were bolus). BSGs ranged from 96-194mg/dL yesterday. * Fasting BSG was 130mg/dL. Will continue Lantus 8 units in the morning and Lantus scale at HS (0 or 4 units depending on BSG). Will continue currently bolus insulin regimen without change. 03/10/25: * IVIG initiated for Guillain Branford syndrome, LP performed yesterday * Blood sugars trended up throughout the day yesterday (149 - 160 - 192 - 209 mg/dL) w/ elevated fasting this morning (177 mg/dL) * Remains on prednisone 5 mg PO daily 03/08 * Patient received total of 11 units of insulin yesterday, no basal * Fasting BSG trending up, reasonable to add low dose basal insulin back on. PO intake appears to have improved over last 24 hours 03/07 * Margy received a total of 10 units of insulin yesterday (all were basal) which is a significant decrease from the day before (total of 57 units on 03/05). Despite the decrease in insulin, BSGs were still mostly below goal yesterday [phone]/dL. * Fasting BSG was 72mg/dL this morning. The Lantus was discontinued and the NovoLog regimen with be continued without change. 03/04 * Patient admitted with b/l leg weakness. Hyperglycemia on admission. * Chronic steroid use, currently on 5 mg daily. * Fasting this AM 138 mg/dL- will scale lantus for PM * prandial BSG continues to be elevated today, will tighten carb ratio to weight stress/3. Prednisone will likely wears off throughout day PLAN FOR INPATIENT GLYCEMIC CONTROL: * Hold outpatient oral diabetes medications * Basal insulin - increase * Lantus 8 units once daily in AM * Lantus 0-4 units SC HS (see EHR for details) * Bolus insulin - tighten carb ratio * NovoLog per scale ACHS or Q6hrs while NPO * Goal Range: Low 120 mg/dL - High 160 mg/dL * Correction Factor: 30 mg/dL/unit * Nutritional / Prandial insulin per carb ratio of 1 unit per 8 grams CHO consumed
--- NOTE | 2025-03-14 10:29 | Hospitalist Progress Note ---
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 -neurology consult appreciated -glucose control -PT/OT -MRI negative -responded well to solu-medrol 125mg given -pt with intermittent episodes of lightheadedness and unsteady gait -place on meclizine - continued and progressive LE muscle weakness - MRI brain negative - neurology reconsult appreciated - R/O GBS - LP ordered - CSF showing glucose 89, protein mild elevation - neurology recommending starting IVIG, ordered - 5/5 does of IVIG completed -plan to d/c to rehab in next 24hrs (2) Lyme disease: Plan: -IgG + but IgM negative -likely chronic -currently on Rocephin, will change to doxycycline upon d/c (3) Hyponatremia: (4) Hyperglycemia due to type 2 diabetes mellitus: Plan: -RISS Plan 79-year-old female PMHx HTN, long-term steroid use secondary to PMR/OA, hypothyroidism, cardiomegaly, T2DM, dysplastic syndrome, prior compression fractures, history of seizure disorder, and tachycardia presenting for ongoing BLE weakness. ED evaluation reveals leukocytosis 14. 24, H&H 10.5/31.5, platelets 408; CMP sodium 132, BUN 25, ratio 42.1, glucose 471, repeat 450, lactate 1; bilirubin 1.4, AST 12; CK 35; troponin 11.5; TSH 1.946; UA negative for infection; CXR no acute findings.; Provided with 2L NSS, cefepime 2 g IV, and acetaminophen 1 g IV in ED. #PMR/OA/Chronic steroids- Prednisone 5mg daily - continue #Seizure disorder- Last seizure > 30 years ago; Lamotrigine - continue #Peripheral neuropathy- Gabapentin did not help, utilizing OTC gels #HTN- Lisinopril - continue #MDS- Follows with Dr. Valadez, most recent visit 08/17/2024 - Trend CBC #Hypothyroidism- TSH 1.946; Levothyroxine daily except for on Sundays - continue #Tachycardia/CAD- Coronary artery calcification identified on chest imaging Jul 2024 so on rosuvastatin now; Echo Aug 2024 showed LV - Continue rosuvastatin Pt requesting d/c home, PT recommending rehab Admission and Anticipated Discharge Date Admission Date: March 03, 2025 Subjective No events overnight. Pt stating she would like to go home instead of rehab. Review of Systems Review of Systems: CONST: Negative for fever, body aches and chills. HENT: Negative for neck pain/stiffness, headache, congestion, sore throat, swelling. EYES: Negative for discharge/pain or vision changes. RESP: Negative for cough/hemoptysis and shortness of breath. CV: Negative chest pain, difficulty breathing, palpitations. ABD: Negative pain, nausea, vomiting. : Negative increase frequency, dysuria, blood in urine or stool. MUSC: Negative for muscle aches, edema. SKIN: Negative rash, lesions/sores. NEURO: Negative headache, dizziness, weakness. Physical Exam Physical Exam: GENERAL APPEARANCE NAD, activity normal for age, well developed/ well nourished, no cyanosis, pallor, or diaphoresis. EYES lids/conjunctiva normal. EARS/NOSE/THROAT Mucous membranes moist, nares normal, lips/teeth normal uvula midline without oral pharyngeal erythema, exudate or swelling TMs normal bilaterally. No lymphangitis/lymphedema. HEAD/NECK normocephalic atraumatic, no facial trauma, neck is supple. RESPIRATORY respiratory effort normal, speaks in full sentences, no tripod position, no accessory muscle use. Lungs clear to auscultation without rhonchi, wheezes, rales CARDIAC Regular rate and rhythm, no edema. ABDOMINAL Soft, ND/NT. No evidence of fluid wave. No pulsatile masses on exam, rebound tenderness, Mcadams sign or pain over Mcburney's point. MUSCLES/EXTREMITIES No abnormal range of motion, no swelling. SKIN Warm, pink and dry. No rashes, dermatoses, petechiae or lesions. NEUROLOGICAL Speech is clear and appropriate. Normal level of consciousness. Gait and coordination are normal. 5/5 strength in all extremities. PSYCH Normal mood and affect. Judgement/competence is appropriate Results & Data Results & Data Vital Signs (Past 12 Hours) Vital Signs Temp Pulse Resp BP Pulse Ox O2 Del Method O2 Flow Rate 03/14/25 07:45 Nasal Cannula 2 03/14/25 07:32 36.6 C 83 18 126/64 94 Nasal Cannula 2 PG Care Time/CCT Total # of Minutes Spent Total Time Spent with Patient: Total time spent is greater than 50% in coordination of care (as documented) at patient's floor/unit and/or counseling patient: Coding Level of Care Code 83469 SUB INP/OBS CARE 235MIN Diagnoses Bilateral leg weakness R29.898 Lyme disease A69.20 Hyponatremia E87.1 Hyperglycemia due to type 2 diabetes mellitus E11.65
[2025-03-14] MEDS: MELATONIN 3 MG TAB PO PRN (20:51)
[2025-03-15 07:32] VITALS: BP 118/67; RESP 18; TEMP 97.9; O2SAT 92
--- NOTE | 2025-03-15 10:42 | Hospitalist Progress Note ---
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 -neurology consult appreciated -glucose control -PT/OT -MRI negative -responded well to solu-medrol 125mg given -pt with intermittent episodes of lightheadedness and unsteady gait -place on meclizine - continued and progressive LE muscle weakness - MRI brain negative - neurology reconsult appreciated - R/O GBS - LP ordered - CSF showing glucose 89, protein mild elevation - neurology recommending starting IVIG, ordered - 5/5 does of IVIG completed -plan to d/c to rehab in next 24hrs (2) Lyme disease: Plan: -IgG + but IgM negative -likely chronic -currently on Rocephin, will change to doxycycline upon d/c (3) Hyponatremia: (4) Hyperglycemia due to type 2 diabetes mellitus: Plan: -RISS Plan 79-year-old female PMHx HTN, long-term steroid use secondary to PMR/OA, hypothyroidism, cardiomegaly, T2DM, dysplastic syndrome, prior compression fractures, history of seizure disorder, and tachycardia presenting for ongoing BLE weakness. ED evaluation reveals leukocytosis 14. 24, H&H 10.5/31.5, platelets 408; CMP sodium 132, BUN 25, ratio 42.1, glucose 471, repeat 450, lactate 1; bilirubin 1.4, AST 12; CK 35; troponin 11.5; TSH 1.946; UA negative for infection; CXR no acute findings.; Provided with 2L NSS, cefepime 2 g IV, and acetaminophen 1 g IV in ED. #PMR/OA/Chronic steroids- Prednisone 5mg daily - continue #Seizure disorder- Last seizure > 30 years ago; Lamotrigine - continue #Peripheral neuropathy- Gabapentin did not help, utilizing OTC gels #HTN- Lisinopril - continue #MDS- Follows with Dr. Valadez, most recent visit 08/17/2024 - Trend CBC #Hypothyroidism- TSH 1.946; Levothyroxine daily except for on Sundays - continue #Tachycardia/CAD- Coronary artery calcification identified on chest imaging Jul 2024 so on rosuvastatin now; Echo Aug 2024 showed LV - Continue rosuvastatin Pt requesting d/c home, PT recommending rehab Admission and Anticipated Discharge Date Admission Date: March 03, 2025 Subjective No events overnight. Pt still insisting she would like to go home instead of rehab. Review of Systems Review of Systems: CONST: Negative for fever, body aches and chills. HENT: Negative for neck pain/stiffness, headache, congestion, sore throat, swelling. EYES: Negative for discharge/pain or vision changes. RESP: Negative for cough/hemoptysis and shortness of breath. CV: Negative chest pain, difficulty breathing, palpitations. ABD: Negative pain, nausea, vomiting. : Negative increase frequency, dysuria, blood in urine or stool. MUSC: Negative for muscle aches, edema. SKIN: Negative rash, lesions/sores. NEURO: Negative headache, dizziness, weakness. Physical Exam Physical Exam: GENERAL APPEARANCE NAD, activity normal for age, well developed/ well nourished, no cyanosis, pallor, or diaphoresis. EYES lids/conjunctiva normal. EARS/NOSE/THROAT Mucous membranes moist, nares normal, lips/teeth normal uvula midline without oral pharyngeal erythema, exudate or swelling TMs normal bilaterally. No lymphangitis/lymphedema. HEAD/NECK normocephalic atraumatic, no facial trauma, neck is supple. RESPIRATORY respiratory effort normal, speaks in full sentences, no tripod position, no accessory muscle use. Lungs clear to auscultation without rhonchi, wheezes, rales CARDIAC Regular rate and rhythm, no edema. ABDOMINAL Soft, ND/NT. No evidence of fluid wave. No pulsatile masses on exam, rebound tenderness, Mcadams sign or pain over Mcburney's point. MUSCLES/EXTREMITIES No abnormal range of motion, no swelling. SKIN Warm, pink and dry. No rashes, dermatoses, petechiae or lesions. NEUROLOGICAL Speech is clear and appropriate. Normal level of consciousness. Gait and coordination are normal. 5/5 strength in all extremities. PSYCH Normal mood and affect. Judgement/competence is appropriate Results & Data Results & Data Vital Signs (Past 12 Hours) Vital Signs Temp Pulse Resp BP Pulse Ox O2 Del Method O2 Flow Rate 03/15/25 07:45 Room Air 03/15/25 07:32 36.6 C 102 H 18 118/67 92 Nasal Cannula 2 PG Care Time/CCT Total # of Minutes Spent Total Time Spent with Patient: Total time spent is greater than 50% in coordination of care (as documented) at patient's floor/unit and/or counseling patient: Coding Level of Care Code 75502 SUB INP/OBS CARE 235MIN Diagnoses Bilateral leg weakness R29.898 Lyme disease A69.20 Hyponatremia E87.1 Hyperglycemia due to type 2 diabetes mellitus E11.65
--- NOTE | 2025-03-15 11:36 | Discharge Summary ---
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 -neurology consult appreciated -glucose control -PT/OT -MRI negative -responded well to solu-medrol 125mg given -pt with intermittent episodes of lightheadedness and unsteady gait -place on meclizine - continued and progressive LE muscle weakness - MRI brain negative - neurology reconsult appreciated - R/O GBS - LP ordered - CSF showing glucose 89, protein mild elevation - neurology recommending starting IVIG, ordered - 01/16 does of IVIG completed -plan to d/c to rehab in next 24hrs (2) Lyme disease: -IgG + but IgM negative -likely chronic -currently on Rocephin, will change to doxycycline upon d/c (3) Hyponatremia: (4) Hyperglycemia due to type 2 diabetes mellitus: -RISS Plan 79-year-old female PMHx HTN, long-term steroid use secondary to PMR/OA, hypothyroidism, cardiomegaly, T2DM, dysplastic syndrome, prior compression fractures, history of seizure disorder, and tachycardia presenting for ongoing BLE weakness. ED evaluation reveals leukocytosis 14. 24, H&H 10.5/31.5, platelets 408; CMP sodium 132, BUN 25, ratio 42.1, glucose 471, repeat 450, lactate 1; bilirubin 1.4, AST 12; CK 35; troponin 11.5; TSH 1.946; UA negative for infection; CXR no acute findings.; Provided with 2L NSS, cefepime 2 g IV, and acetaminophen 1 g IV in ED. #PMR/OA/Chronic steroids- Prednisone 5mg daily - continue #Seizure disorder- Last seizure > 30 years ago; Lamotrigine - continue #Peripheral neuropathy- Gabapentin did not help, utilizing OTC gels #HTN- Lisinopril - continue #MDS- Follows with Dr. Valadez, most recent visit 08/17/2024 - Trend CBC #Hypothyroidism- TSH 1.946; Levothyroxine daily except for on Sundays - continue #Tachycardia/CAD- Coronary artery calcification identified on chest imaging Jul 2024 so on rosuvastatin now; Echo Aug 2024 showed LV - Continue rosuvastatin Pt requesting d/c home, PT recommending rehab Admission HPI Per Admitting Provider 79-year-old female PMHx HTN, long-term steroid use secondary to PMR/OA, hypothyroidism, cardiomegaly, T2DM, dysplastic syndrome, prior compression fractures, history of seizure disorder, and tachycardia presenting for ongoing BLE weakness and ambulatory dysfunction. Patient was evaluated in ER 2 times prior to this current evaluation for the same complaint in the past month of February. She continues to have bilateral leg weakness, stating that it has just continued to get worse. States approximately 2 weeks ago she was in the garden identify hours for a few hours. She states she normally does check her skin for tick bites and did not recall having 1. She has had a few ticks crawling on her before but she did not think that any of them attached to the her. Since 2 weeks ago, she has had increased BLE weakness and generalized feeling of "just not good." Thursday [employer] she called Dr. Thony Winter who encouraged her to come to the ED which she did not end up being discharged home. That Thursday she reports she is "not feeling good." The Thursday following that her had to help her walk up and down the steps and reports that he believes she had an episode of passing out that lasted only a few seconds. She states that today, she woke up and was feeling normal but in the afternoon she started to have worsening of her neuropathy, stating that her legs were aching. She was unable to walk up the steps without support, her had to help her. She states that her legs folded below her. She did not hit her head or other body parts because her was there to help catch her. She has not felt feverish, or taking her temperature. States that she has never had a tick bite before. Her back pain was present earlier in the day but not at present while she is resting in bed. She does have urinary incontinence at baseline which has not worsened since the symptoms started, no bowel incontinence. She states that she gets chronic UTIs sometimes her abdomen will feel irritated from this but she is not experiencing that at the present. She did have some nausea earlier in the day but no vomiting. Denies chest pain, SOB, palpitations, diarrhea/constipation, fever/chills, URI symptoms, LUTS, or other pain. She does sometimes take an Aleve to help with her pain. States that she followed with neurologist Dr. Andrews a few years back for her neuropathy and because she had weak reflexes. Patient does have a history of a seizure disorder, stating her last seizure was more th an 30 years ago. She did trial gabapentin earlier in the week, but states that she did not feel this was helping her and she did not feel right on the medication so she discontinued it. ED evaluation reveals leukocytosis 14. 24, H&H 10.5/31.5, platelets 408; CMP sodium 132, BUN 25, ratio 42.1, glucose 471, repeat 450, lactate 1; bilirubin 1.4, AST 12; CK 35; troponin 11.5; TSH 1.946; UA negative for infection; CXR no acute findings.; Provided with 2L NSS, cefepime 2 g IV, and acetaminophen 1 g IV in ED. Please see Dr. Macias's attestation for adjustments/additions to treatment plan. Discharge Exam GENERAL APPEARANCE NAD, activity normal for age, well developed/ well nourished, no cyanosis, pallor, or diaphoresis. EYES lids/conjunctiva normal. EARS/NOSE/THROAT Mucous membranes moist, nares normal, lips/teeth normal uvula midline without oral pharyngeal erythema, exudate or swelling TMs normal bilaterally. No lymphangitis/lymphedema. HEAD/NECK normocephalic atraumatic, no facial trauma, neck is supple. RESPIRATORY respiratory effort normal, speaks in full sentences, no tripod position, no accessory muscle use. Lungs clear to auscultation without rhonchi, wheezes, rales CARDIAC Regular rate and rhythm, no edema. ABDOMINAL Soft, ND/NT. No evidence of fluid wave. No pulsatile masses on exam, rebound tenderness, Mcadams sign or pain over Mcburney's point. MUSCLES/EXTREMITIES No abnormal range of motion, no swelling. SKIN Warm, pink and dry. No rashes, dermatoses, petechiae or lesions. NEUROLOGICAL Speech is clear and appropriate. Normal level of consciousness. Gait and coordination are normal. 5/5 strength in all extremities. PSYCH Normal mood and affect. Judgement/competence is appropriate Discharge Plan Discharge Items Patient Disposition: Transfer Inpatient Rehab Fac Reason For Visit: BLE WEAKNESS,HYPERGLYCEMIA Discharge Diagnosis: diabetic amyotrophy Condition on Discharge: Fair Activity: Resume your previous activity Non-emergency contact: Primary Care Provider Call non-emergency contact if: you have any medication questions Follow-up/Referrals: Jonny Lozano MD [Primary Care Provider] - 03/14/25 3:00 pm Diet: Carb Consistent or DM2 Addtl Attending Provider Instructions: Follow up with PMD in 2 weeks Pending Studies at Discharge: No Stand-Alone Forms: My [facility] Skilled Items Patient informed of condition?: Yes DNR: No Discharge Level of Care: Skilled Communicable Disease: No Discharge Prognosis: Stable Lines: None Urinary Catheter: No Medications and DC Order Prescriptions: New doxycycline hyclate 100 mg capsule 100 mg PO BID 10 Days Qty: 20 0RF Continued lamotrigine 150 mg tablet 150 mg PO BID Qty: 180 3RF Evenity 210mg/2.34mL ( 105mg/1.17mLx2) syringe 210 mg subcut ONCE Qty: 2.34 10RF Rx Instructions: inject monthly for 12 monthly doses lisinopril 10 mg tablet 10 mg PO QAM Qty: 90 1RF prednisone 5 mg tablet 5 mg PO QAM Qty: 90 3RF levothyroxine 112 mcg tablet 112 mcg PO UD Qty: 90 1RF Rx Instructions: 6 days a week only-thursday through thursday only QAM cholecalciferol (vitamin D3) 50 mcg (2,000 unit) tablet 2,000 units PO QAM rosuvastatin 10 mg tablet 5 mg PO DAILY PreserVision AREDS 4,296 mcg-226 mg-90 mg capsule 1 cap PO BID phenazopyridine [Azo Urinary Pain Relief] 95 mg tablet 95 mg PO BID PRN (Reason: pain relief) gabapentin 100 mg capsule 100 mg PO TID PRN (Reason: back pain) Qty: 30 0RF Discharge Orders: Discharge Order (Routine); Ordered 03/15/25 Ordered By: Syed Stone Admission Data Admit Date/Time: 03/03/25 23:34 Attending Provider: Syed Stone Admit Provider: Kei Macias Primary Care Provider: Jonny Lozano V. Other Providers: Kei Macias; Adi Cabrera; [facility]; Masood Amador Other Interventions: Discharge Summary Assessment (RN) Last Done: 03/06/25 10:24 Hospital Stay Data Consultations 03/03/25 22:19 ED Decision to Admit Stat 03/04/25 01:40 Consult Neurology Routine 03/04/25 07:59 Consult Infectious Diseases Routine 03/08/25 14:53 Consult Neurology Routine Diagnostic Imagining Performed 03/04/25 12:28 MRI Lumbar Spine [MR lumbar spine wo/w con] Stat 03/08/25 14:54 MRI Brain [MR brain wo/w con] Routine 03/09/25 11:30 IR lumbar puncture diagnostic Routine 03/13/25 09:32 CT head/brain wo con Stat Pending Results Patient Have Any Pending Studies at Discharge: No Discharge Instructions Given to Patient (Per Discharging Provider) Follow up with PMD in 2 weeks Total Time Total Time Spent Total Time Spent (In Minutes): 50 Coding Level of Care Code 76518 INP/OBS DISCH >30 MIN Diagnoses Bilateral leg weakness R29.898 Lyme disease A69.20 Hyponatremia E87.1 Hyperglycemia due to type 2 diabetes mellitus E11.65
[2025-03-15 13:31] VITALS: PULSE 85
== END 2025-03-15 14:45 | DRG 74 ==
LOC: ED 20:12 → SUATTDRO 23:34 → 3E 23:34